=== PATIENT | female | born 1975 | race Caucasian/White ===

== ENCOUNTER 2017-03-31 16:25 | Emergency (ER) | payer MEDICAID, OTHER ==
[~2017-03-31] VITALS: Ht 162.6 cm; Wt 81.6 kg
[2017-03-31] MEDS ORDERED: RT-ALBUTEROL/IPRATROPIUM 3 ML (DUONEB) VIAL INH ONE (17:15)
[2017-03-31] MEDS ORDERED: DEXAMETHASONE 4 MG/ML SDV (DECADRON) IH ONE (17:15)
--- NOTE | 2017-03-31 18:00 | Diagnostic Imaging Report ---
CLINICAL INDICATION: Patient has asthma, cough and congestion and tightness, worse x2 days. EXAM: Chest x-ray, PA and lateral views. COMPARISONS: None. FINDINGS: Lungs/pleura: Lungs are clear. There is no pneumothorax. There is no pleural effusion. Mediastinum: Unremarkable. Pulmonary vasculature: Unremarkable. Heart: Unremarkable. Bones/extrathoracic soft tissue: Unremarkable. IMPRESSION: There is no radiographic evidence of acute cardiopulmonary process. Dictated by: Dictated on workstation # [id number]
[2017-03-31] MEDS ORDERED: predniSONE 20 MG TAB PO ONE (18:15)
[2017-03-31] MEDS ORDERED: DOXY100C42 PO (18:16)
[2017-03-31] MEDS ORDERED: IPRA3AMP IH (18:16)
[2017-03-31] MEDS ORDERED: METH4TAB PO (18:16)
[2017-03-31] MEDS ORDERED: RT-ALBUINH IH (18:16)
[2017-03-31] MEDS ORDERED: BUDE1AMP IH (18:16)
--- NOTE | 2017-03-31 18:17 | ED Respiratory ---
General Chief Complaint: Respiratory Problems Stated Complaint: ASTHMA/ALLERGIES/SOB Nursing Triage Note: PT STATES HX OF ASTHMA AND ALLERGIES, FEELS SOB, HURTS TO COUGH AND CAUSES CHEST PAIN, "FEELS LIKE SHE IS UNDER WATER." O2 SAT 96% AT TRIAGE ON ROOM AIR. Source: patient History of Present Illness Time seen by provider: 17:10 Initial Comments PT ARRIVES VIA POV FROM HOME C/O ASTHMA FLARE UP FOR THE LAST COUPLE OF DAYS PT TAKES ALBUTEROL NEBULIZER AND INHALER EVERY DAY, AND HAS BEEN OUT FOR 2 DAYS AND WILL NOT BE ABLE TO REFILL THEM FOR 2 MORE DAYS PT HAS ADVAIR BUT HAS NOT BEEN USING IT--NOT FOR SEVERAL MONTHS PT HAS HAD A NON-PRODUCTIVE COUGH BEGAN RUNNING FEVER OF 99 TODAY CHEST FEELS VERY TIGHT HAS HAD ASTHMA HER WHOLE LIFE NO SICK CONTACTS PCP: IN [place], [place] Allergies and Home Medications Allergies Coded Allergies: hydrocodone (Verified Allergy, Severe, 03/31/17) Home Medications Albuterol Sulfate 1 Puff Puff, 2 PUFF IH Q4H, #1 USE WITH SPACER AT ALL TIMES Prescribed by: PATRICIA JIMENEZ on 03/31/171815 Budesonide 1 Mg/2 Ml Ampul.neb, 1 MG IH BID, #1 Prescribed by: PATRICIA JIMENEZ on 03/31/171815 Doxycycline Monohydrate 100 Mg Capsule, 100 MG PO BID, #20 Prescribed by: PATRICIA JIMENEZ on 03/31/171815 Ipratropium/Albuterol Sulfate 3 Ml Ampul.neb, 3 ML IH Q4H PRN for SHORTNESS OF BREATH, #1 Prescribed by: PATRICIA JIMENEZ on 03/31/171815 Methylprednisolone 4 Mg Tab.ds.pk, 4 MG PO UD, #1 Prescribed by: PATRICIA JIMENEZ on 03/31/171815 Constitutional: see HPI, fever EENTM: nose congestion, see HPI Respiratory: see HPI, cough, short of breath, wheezing Cardiovascular: see HPI, chest pain Gastrointestinal: no symptoms reported Genitourinary: no symptoms reported : No LMP: March 31, 2017 (NO CONTROL) Musculoskeletal: no symptoms reported Skin: no symptoms reported Psychiatric/Neurological: No Symptoms Reported Hematologic/Lymphatic: No Symptoms Reported Immunological/Allergic: see HPI (SEASONAL ALLERGIES) Past Vbxdcyk-Mowrvj-Zmqwqo Hx Patient Social History Alcohol Use: Denies Use Recreational Drug Use: No Smoking Status: Former Smoker (/ PPD, QUIT 2 MONTHS AGO, PER PT ON 03/31/17) Type Used: Cigarettes 2nd Hand Smoke Exposure: No Recent Foreign Travel: No Contact w/Someone Who Travel: No Recent Infectious Disease Expo: No Recent Hopitalizations: No Seasonal Allergies Seasonal Allergies: Yes Surgeries HX Surgeries: No Respiratory Hx Respiratory Disorders: Yes Respiratory Disorders: Asthma Cardiovascular Hx Cardiac Disorders: Yes Cardiac Disorders: High Cholesterol Neurological Hx Neurological Disorders: No Reproductive System : No Female Reproductive Disorders: Denies Genitourinary Hx Genitourinary Disorders: No Gastrointestinal Hx Gastrointestinal Disorders: No Musculoskeletal Hx Musculoskeletal Disorders: No Endocrine Hx Endocrine Disorders: No HEENT HX ENT Disorders: No Cancer Hx Cancer: Yes Cancer: Cervical Psychosocial Hx Psychiatric Problems: No Integumentary HX Skin/Integumentary Disorder: No Blood Transfusions Hx Blood Disorders: No Physical Exam Vital Signs Vital Sign - Last 12Hours 03/31/17 03/31/17 16:46 17:17 Temp 99.2 Pulse 74 Resp 20 B/P (MAP) 130/97 Pulse Ox 98 O2 Delivery Room Air O2 Flow Rate 2.00 Capillary Refill : Less Than 3 Seconds General Appearance: WD/WN, no apparent distress HEENT: PERRL/EOMI, other (NASAL MUCOSAL EDEMA AND CLEAR POST NASAL DRAINAGE. NO SINUS TENDERNESS) Neck: normal inspection Respiratory: no respiratory distress, no accessory muscle use, decreased breath sounds (DIFFUSELY), wheezing (INSPIRATORY AND EXPIRATORY WHEEZING IN ALL LUNG OLMOS) Cardiovascular: regular rate, rhythm, no murmur Gastrointestinal: normal bowel sounds, non tender, soft Extremities: normal inspection, normal capillary refill Neurologic/Psychiatric: nnp II-XII nml as tested, no motor/sensory deficits, alert, normal mood/affect, oriented x 3 Skin: normal color, warm/dry Progress/Results/Core Measures Results/Orders My Orders Orders - PATRICIA JIMENEZ DO Albuterol/Ipra Inhalation Soln (Duoneb I (03/31/17 17:15) Dexamethasone Injection (Decadron Inject (03/31/17 17:15) Rt Request For Service (03/31/17 17:11) Svn Sm Volume Nebulizer Rt-Rfs (03/31/17 17:11) Chest Pa/Lat (2 View) (03/31/17 17:35) Prednisone Tablet (Deltasone Tablet) (03/31/17 18:15) Medications Given in ED Current Medications Medications Dose Ordered Sig/Ted Route Start Time Stop Time Status Last Admin Dose Admin Albuterol/ Ipratropium 3 ml ONCE ONCE INH 03/31/17 17:15 03/31/17 17:16 DC 03/31/17 17:21 3 ML Dexamethasone Sodium Phosphate 20 mg ONCE ONCE IH 03/31/17 17:15 03/31/17 17:16 DC 03/31/17 17:23 20 MG Prednisone 40 mg ONCE ONCE PO 03/31/17 18:15 03/31/17 18:16 DC 03/31/17 18:21 40 MG Vital Signs/I&O Vital Sign - Last 12Hours 03/31/17 03/31/17 03/31/17 16:46 17:17 17:27 Temp 99.2 Pulse 74 Resp 20 B/P (MAP) 130/97 Pulse Ox 98 100 O2 Delivery Room Air O2 Flow Rate 2.00 2.00 Blood Pressure Mean: 108 Progress Note : Progress Note GIVEN NEB TREATMENT WITH DUO NEB + DECADRON--INCREASED AERATION, DECREASED WHEEZING BUT STILL HAS MILD RESIDUAL WHEEZING IN AL LUNG OLMOS. PT STATES SHE FEELS MUCH BETTER. PT DECLINES ANOTHER NEB TREATMENT, AND FEELS COMFORTABLE GOING HOME. O2 SATS REMAIN IN UPPER 90'S Diagnostic Imaging Comments CXR--NO ACUTE PROCESS, PER RADIOLOGIST REPORT @ 1800 Reviewed: Reviewed by Me Departure Impression Impression: Primary Impression: Asthma exacerbation Additional Impression: Acute bronchitis Disposition: 01 HOME, SELF-CARE Condition: Improved Departure-Patient Inst. Referrals: NO,LOCAL PHYSICIAN (PCP/Family) Primary Care Physician Patient Instructions: Acute Bronchitis, Adult (DC), Asthma, Adult (DC) Add. Discharge Instructions: USE YOUR ADVAIR EVERY DAY USE YOUR INHALERS PRESCRIBED TYLENOL AND MOTRIN NEEDED FOR PAIN OR FEVER LOTS OF CLEAR LIQUIDS FOLLOW UP WITH YOUR DR TOMORROW IF NO BETTER RETURN TO ER IF WORSE All discharge instructions reviewed with patient and/or family. Voiced understanding. Scripts Ipratropium/Albuterol Sulfate (Iprat-Albut 0.5-3(2.5) mg/3 ml) 3 Ml Ampul.neb 3 ML IH Q4H Y for SHORTNESS OF BREATH, #1 EACH Prov: PATRICIA JIMENEZ DO 03/31/17 Budesonide (Pulmicort) 1 Mg/2 Ml Ampul.neb 1 MG IH BID, #1 UNIT Prov: PATRICIA JIMENEZ DO 03/31/17 Methylprednisolone (Medrol) 4 Mg Tab.ds.pk 4 MG PO UD, #1 PKG Prov: PATRICIA JIMENEZ DO 03/31/17 Doxycycline Monohydrate (Doxycycline Monohydrate) 100 Mg Capsule 100 MG PO BID, #20 CAP Prov: PATRICIA JIMENEZ DO 03/31/17 Albuterol Sulfate (PROAIR HFA) 1 Puff Puff 2 PUFF IH Q4H for BREATHING, #1 GM USE WITH SPACER AT ALL TIMES Prov: PATRICIA JIMENEZ DO 03/31/17 PATRICIA JIMENEZ DO March 31, 2017 18:17
[2017-03-31 18:23] VITALS: BP 139/92
== END 2017-03-31 18:23 | disposition home or self-care (01) ==
LOC: ER 16:28
DX: J45.901 Unspecified asthma with (acute) exacerbation (principal); J20.9 Acute bronchitis, unspecified; Z87.891 Personal history of nicotine dependence; Z79.899 Other long term (current) drug therapy
CPT/HCPCS: 71020; 94640; 99282

== ENCOUNTER 2017-07-01 19:39 | Emergency (ER) | payer MEDICAID ==
[~2017-07-01] VITALS: Ht 162.6 cm; Wt 81.6 kg
[~2017-07-01 19:39] MED LIST: BUDE1AMP IH; DOXY100C42 PO; IPRA3AMP IH; METH4TAB PO; RT-ALBUINH IH
[2017-07-01] MEDS ORDERED: DEXAMETHASONE 4 MG/ML SDV (DECADRON) IH ONE (20:00)
[2017-07-01] MEDS ORDERED: methylPREDNISolone 125 MG (Solu-MEDROL) VIAL IVP ONE (20:00)
[2017-07-01] MEDS ORDERED: RT-ALBUTEROL/IPRATROPIUM 3 ML (DUONEB) VIAL INH ONE (20:00)
[2017-07-01 20:03] LABS: BASOPHILS % (AUTO) 0 % (0-10); EOSINOPHILS % (AUTO) 0 % (0-10); LYMPHOCYTES % (AUTO) 14 % (12-44); MEAN CORPUSCULAR HEMOGLOBIN 28 PG (25-34); MEAN CORPUSCULAR HGB CONC 33 G/DL (32-36); MEAN CORPUSCULAR VOLUME 85 FL (80-99); MEAN PLATELET VOLUME 11.1 FL (7.4-10.4); MONOCYTES # (AUTO) 0.6 X 10^3 (0.0-1.0); MONOCYTES % (AUTO) 4 % (0-12); NEUTROPHILS % (AUTO) 82 % (42-75); PLATELET COUNT 401 10^3/uL (130-400); RED BLOOD COUNT 5.32 10^6/uL (4.35-5.85); RED CELL DISTRIBUTION WIDTH 13.6 % (10.0-14.5); WHITE BLOOD COUNT 14.6 10^3/uL (4.3-11.0)
[2017-07-01 20:14] LABS: PROTHROMBIN TIME PATIENT 12.8 SEC (12.2-14.7)
[2017-07-01] MEDS ORDERED: diphenhydrAMINE 50 MG/ML INJ (BENADRYL) ONE (20:23)
[2017-07-01] MEDS ORDERED: FAMOTIDINE 20MG/2ML IV (PEPCID) ONE (20:23)
[2017-07-01] MEDS ORDERED: RT-ALBUTEROL SULF 2.5 MG/3 ML PRE-MIX VIAL ONE ×2 (20:24→20:37)
[2017-07-01 20:25] LABS: ALANINE AMINOTRANSFERASE 23 U/L (0-55); ALBUMIN 4.4 GM/DL (3.2-4.5); ANION GAP 10 MMOL/L (5-14); ASPARTATE AMINO TRANSFERASE 18 U/L (5-34); BILIRUBIN,TOTAL 0.4 MG/DL (0.1-1.0); BLOOD UREA NITROGEN 14 MG/DL (7-18); BUN/CREATININE RATIO 18; CALCIUM 9.8 MG/DL (8.5-10.1); CARBON DIOXIDE 25 MMOL/L (21-32); CHLORIDE 106 MMOL/L (98-107); CREATINE KINASE 281 U/L (29-168); GFR ESTIMATED > 60; GLUCOSE 112 MG/DL (70-105); POTASSIUM 4.2 MMOL/L (3.6-5.0); SODIUM 141 MMOL/L (135-145); TOTAL PROTEIN 7.6 GM/DL (6.4-8.2)
[2017-07-01 20:27] LABS: BAND NEUTROPHILS 5 %; BASOPHILS % (MANUAL) 0 %; EOSINOPHILS % (MANUAL) 0 %; LYMPHOCYTES % (MANUAL) 18 %; NEUTROPHILS % (MANUAL) 76 %
[2017-07-01 20:31] LABS: TROPONIN I < 0.30 NG/ML (<0.30)
[2017-07-01] MEDS ORDERED: RT-SODIUM CHL INHALATION 3 ML VIAL ONE (20:37)
--- NOTE | 2017-07-01 20:56 | Diagnostic Imaging Report ---
INDICATION: Shortness of air. Cough and congestion. COMPARISON: 03/31/2017. EXAMINATION: Single frontal view of the chest was obtained. FINDINGS: Normal heart size and pulmonary vascularity. The lungs are well aerated and clear. No large pleural effusion or pneumothorax is seen. The visualized osseous structures show no acute abnormalities. IMPRESSION: No acute cardiopulmonary process. Dictated by: Dictated on workstation # [id number]
[2017-07-01] MEDS ORDERED: NS 100 ML (IVPB) BAG IV ONE (21:45)
[2017-07-01] MEDS ORDERED: IOHEXOL 350 MG/ML 150 ML (OMNIPAQUE 350) VIAL IV ONE (21:45)
--- NOTE | 2017-07-01 23:46 | ED Respiratory ---
General Chief Complaint: Respiratory Problems Stated Complaint: SOA Nursing Triage Note: pt ambulated to room. pt states she has been "feeling drained, and sob" since june 18. pt complains of many allergies. pt states she has been sucking her nebulizer dry since the and taking breathing treatments continuously. pt took a breathing treatment on her way here. Source: patient History of Present Illness Time seen by provider: 19:47 Initial Comments PT ARRIVES VIA POV FROM HOME IN [place], [place]--DROVE SELF HERE STATES "I'M NOT BREATHING" "I'M NOT HAVING ANY OXYGEN TO PULL FROM" "I FEEL LIKE I'M DROWNING" PT STATES SYMPTOMS HAVE BEEN ONGOING SINCE 06/18/17--STATES SYMPTOMS ARE MUCH WORSE WHEN SHE IS IN HER HOUSE STATES THAT ANDRE HAS BEEN PULLED UP, AND THINKS SHE IS BEING EXPOSED TO MOLD SHE ALSO HAS A DOG IN THE HOUSE--LATER STATES "THE WORST ALLERGIC REACTION IS TO DOGS--IT ZAPS ME AND DEPLETES ME OF MY ABILITY TO BREATHE" "IT'S EXASPERATING MY ASTHMA--WHATEVER IT IS THAT'S CAUSING THIS ALLERGIC REACTION" NO FEVER C/O VERY HARSH COUGH WITH WHITE TO CASTRO SPUTUM STATES SHE COUGHS SO HARD IT MAKES HER CHEST AND NECK HURT HAS HAD SOME MILD ANKLE SWELLING SINCE THESE SYMPTOMS BEGAN HAS HAD THE SAME MULTIPLE TIMES HAS NOT SOUGHT CARE UNTIL TONIGHT SINCE SYMPTOMS BEGAN 06/18/17 PT STATES SYMPTOMS ARE NOT ANY DIFFERENT TONIGHT THAN WHAT SHE HAS BEEN EXPERIENCING HAS USED 2 PRO-AIR INHALERS THIS MONTH AND IS NOW OUT AND STATES SHE CANNOT REFILL THEM FOR ANOTHER MONTH. PT HAS USED ALBUTEROL NEBULIZER 7-8 TIMES TODAY AND USED IT ENROUTE--STATES SHE PLUGGED THE NEBULIZER IN HER CAR AND USED IT ON THE WAY HERE--STATES "I WAS JUST TRYING TO STAY ALIVE" HAS NOT USED / TAKEN ANYTHING ELSE FOR SYMPTOMS AT ANY TIME. PT CONTINUES TO SMOKE 1 PPD PT USES HER ALBUTEROL INHALER AND NEBULIZER EVERY DAY NORMALLY HAS BEEN SEEN BY CASTING FINISHER A COUPLE OF TIMES, YEARS AGO, BUT DID NOT FOLLOW UP SEEN HER 03/2017 FOR SAME--AT THAT TIME, PT HAD ADVAIR AT HOME, BUT WAS NOT USING IT. SHE WAS ALSO GIVEN RX FOR PULMICORT NEBULIZER SOLN, BUT DID NOT GET IT FILLED NEVER FOLLOWED UP WITH HER PCP AFTER THAT VISIT. PCP: [facility] [place], [place] Allergies and Home Medications Allergies Coded Allergies: hydrocodone (Verified Allergy, Severe, 03/31/17) Home Medications Albuterol Sulfate 1 Puff Puff, 2 PUFF IH Q4H, #1 USE WITH SPACER AT ALL TIMES Prescribed by: PATRICIA JIMENEZ on 03/31/171815 Albuterol/Ipratropium 4 Gm Aero, 2 PUFF IH Q4H, #1 Prescribed by: PATRICIA JIMENEZ on 07/01/172347 Budesonide 1 Mg/2 Ml Ampul.neb, 1 MG IH BID, #1 Prescribed by: PATRICIA JIMENEZ on 03/31/171815 Budesonide 1 Mg/2 Ml Ampul.neb, 1 MG IH BID, #60 Prescribed by: PATRICIA JIMENEZ on 07/01/172347 Bupropion HCl 150 Mg Tab.er.24h, 150 MG PO DAILY, #15 Prescribed by: PATRICIA JIMENEZ on 07/01/172347 Doxycycline Monohydrate 100 Mg Capsule, 100 MG PO BID, #20 Prescribed by: PATRICIA JIMENEZ on 03/31/171815 Fluticasone/Salmeterol 1 Each Blst.w.dev, 1 EACH IH BID, #1 Prescribed by: PATRICIA JIMENEZ on 07/01/172347 Ipratropium/Albuterol Sulfate 3 Ml Ampul.neb, 3 ML IH Q4H PRN for SHORTNESS OF BREATH, #1 Prescribed by: PATRICIA JIMENEZ on 03/31/171815 Ipratropium/Albuterol Sulfate 3 Ml Ampul.neb, 3 ML IH Q4H PRN for SHORTNESS OF BREATH, #1 Prescribed by: PATRICIA JIMENEZ on 07/01/172347 Methylprednisolone 4 Mg Tab.ds.pk, 4 MG PO UD, #1 Prescribed by: PATRICIA JIMENEZ on 03/31/171815 Methylprednisolone 4 Mg Tab.ds.pk, 4 MG PO UD, #1 Prescribed by: PATRICIA JIMENEZ on 07/01/172347 Montelukast Sodium 10 Mg Tablet, 10 MG PO DAILY, #30 Prescribed by: PATRICIA JIMENEZ on 07/01/172347 Constitutional: no symptoms reported, No chills, No diaphoresis, No dizziness EENTM: no symptoms reported Respiratory: see HPI, cough, dyspnea on exertion, orthopnea, phlegm, short of breath, wheezing Cardiovascular: see HPI, chest pain, edema, No palpitations, No syncope, No vascular heart diseas Gastrointestinal: no symptoms reported Genitourinary: no symptoms reported Musculoskeletal: see HPI, neck pain Skin: no symptoms reported Psychiatric/Neurological: See HPI, Anxiety Hematologic/Lymphatic: No Symptoms Reported Immunological/Allergic: see HPI (ENVIRONMENTAL ALLERGIES) Past Czqboki-Uccpjx-Dbiryk Hx Patient Social History Alcohol Use: Denies Use Recreational Drug Use: No Smoking Status: Current Everyday Smoker (1 PPD) Type Used: Cigarettes 2nd Hand Smoke Exposure: No Recent Foreign Travel: No Contact w/Someone Who Travel: No Recent Infectious Disease Expo: No Recent Hopitalizations: No Seasonal Allergies Seasonal Allergies: Yes Surgeries HX Surgeries: No Respiratory Hx Respiratory Disorders: Yes Respiratory Disorders: Asthma Cardiovascular Hx Cardiac Disorders: Yes (VASOVAGAL SYNCOPE) Cardiac Disorders: High Cholesterol, Syncope Neurological Hx Neurological Disorders: No Reproductive System : No Hx Reproductive Disorders: Yes (CERVICAL DYSPLASIA--NO TREATMENT) Female Reproductive Disorders: Ovarian Cyst, Polycystic Ovarian Dis Genitourinary Hx Genitourinary Disorders: No Gastrointestinal Hx Gastrointestinal Disorders: No Musculoskeletal Hx Musculoskeletal Disorders: No Endocrine Hx Endocrine Disorders: No HEENT HX ENT Disorders: No Cancer Hx Cancer: No (CERVICAL DYSPLASIA--NO TREATMENT--STATES "I WENT AWAY ON IT'S OWN" ) Psychosocial Hx Psychiatric Problems: No Integumentary HX Skin/Integumentary Disorder: No Blood Transfusions Hx Blood Disorders: No Physical Exam Vital Signs Vital Sign - Last 12Hours 07/01/17 07/01/17 07/01/17 19:40 20:30 20:35 Temp 97.5 Pulse 99 Resp 25 B/P (MAP) 149/87 Pulse Ox 95 O2 Delivery Room Air O2 Flow Rate 2.00 FiO2 96 Capillary Refill : Less Than 3 Seconds General Appearance: other (ANXIOUS, HYPERVENTILATING, TALKS NON-STOP AT LENGTH , SOMEWHAT DRAMATIC. HARSH, FORCED EXPIRATORY WHEEZING. + ODOR OF CIGARETTES) HEENT: PERRL/EOMI, normal ENT inspection, TMs normal, pharynx normal Neck: non-tender, full range of motion, supple, normal inspection Respiratory: wheezing (HARSH, FORCED EXPIRATORY WHEEZING DIFFUSELY BILATERALLY) , other (HYPERVENTILATING) Cardiovascular: normal peripheral pulses, regular rate, rhythm, no edema, no JVD, no murmur Gastrointestinal: normal bowel sounds, non tender, soft Extremities: normal inspection, no pedal edema, no calf tenderness, normal capillary refill Neurologic/Psychiatric: vp data II-XII nml as tested, no motor/sensory deficits, alert, oriented x 3 Skin: normal color, warm/dry Progress/Results/Core Measures Results/Orders Lab Results Laboratory Tests Test 07/01/17 19:51 Range/Units White Blood Count 14.6 H 4.3-11.0 10^3/uL Red Blood Count 5.32 4.35-5.85 10^6/uL Hemoglobin 14.9 11.5-16.0 G/DL Hematocrit 45 35-52 % Mean Corpuscular Volume 85 80-99 FL Mean Corpuscular Hemoglobin 28 25-34 PG Mean Corpuscular Hemoglobin Concent 33 32-36 G/DL Red Cell Distribution Width 13.6 10.0-14.5 % Platelet Count 401 H 130-400 10^3/uL Mean Platelet Volume 11.1 H 7.4-10.4 FL Neutrophils (%) (Auto) 82 H 42-75 % Lymphocytes (%) (Auto) 14 12-44 % Monocytes (%) (Auto) 4 0-12 % Eosinophils (%) (Auto) 0 0-10 % Basophils (%) (Auto) 0 0-10 % Neutrophils # (Auto) 12.0 H 1.8-7.8 X 10^3 Lymphocytes # (Auto) 2.0 1.0-4.0 X 10^3 Monocytes # (Auto) 0.6 0.0-1.0 X 10^3 Eosinophils # (Auto) 0.0 0.0-0.3 10^3/uL Basophils # (Auto) 0.0 0.0-0.1 10^3/uL Neutrophils % (Manual) 76 % Lymphocytes % (Manual) 18 % Monocytes % (Manual) 1 % Eosinophils % (Manual) 0 % Basophils % (Manual) 0 % Band Neutrophils 5 % Blood Morphology Comment NORMAL Prothrombin Time 12.8 12.2-14.7 SEC INR Comment 1.0 0.8-1.4 Activated Partial Thromboplast Time 24 24-35 SEC Sodium Level 141 135-145 MMOL/L Potassium Level 4.2 3.6-5.0 MMOL/L Chloride Level 106 98-107 MMOL/L Carbon Dioxide Level 25 21-32 MMOL/L Anion Gap 10 5-14 MMOL/L Blood Urea Nitrogen 14 7-18 MG/DL Creatinine 0.80 0.60-1.30 MG/DL Estimat Glomerular Filtration Rate > 60 BUN/Creatinine Ratio 18 Glucose Level 112 H 70-105 MG/DL Calcium Level 9.8 8.5-10.1 MG/DL Magnesium Level 2.0 1.8-2.4 MG/DL Total Bilirubin 0.4 0.1-1.0 MG/DL Aspartate Amino Transf (AST/SGOT) 18 5-34 U/L Alanine Aminotransferase (ALT/SGPT) 23 0-55 U/L Alkaline Phosphatase 89 40-136 U/L Total Creatine Kinase 281 H 29-168 U/L Creatine Kinase MB 4.5 <6.6 NG/ML Troponin I < 0.30 <0.30 NG/ML B-Type Natriuretic Peptide 19.8 <100.0 PG/ML Total Protein 7.6 6.4-8.2 GM/DL Albumin 4.4 3.2-4.5 GM/DL Serum Test, Qualitative NEGATIVE NEGATIVE My Orders Orders - TONYPATRICIA K DO Saline Lock/Iv-Start (07/01/17 19:57) Ekg Tracing (07/01/17 19:57) Monitor-Rhythm Ecg Trace Only (07/01/17 19:57) BNP (07/01/17 19:57) Cbc With Automated Diff (07/01/17 19:57) Comprehensive Metabolic Panel (07/01/17 19:57) Creatine Kinase (07/01/17 19:57) Creatine Kinase Mb (07/01/17 19:57) Hcg,Qualitative Serum (07/01/17 19:57) Magnesium (07/01/17 19:57) Protime With Inr (07/01/17 19:57) Partial Thromboplastin Time (07/01/17 19:57) Troponin I (07/01/17 19:57) Albuterol/Ipra Inhalation Soln (Duoneb I (07/01/17 20:00) Dexamethasone Injection (Decadron Inject (07/01/17 20:00) Rt Request For Service (07/01/17 19:57) Svn Sm Volume Nebulizer Rt-Rfs (07/01/17 19:57) Methylprednisolone Sod Succ (Solu-Medrol (07/01/17 20:00) Manual Differential (07/01/17 19:51) Diphenhydramine Injection (Benadryl Inje (07/01/17 20:23) Famotidine Injection (Pepcid Injection) (07/01/17 20:23) Albuterol Pre-Mix Nebs (Rt) (Proventil P (07/01/17 20:24) Chest 1 View, Ap/Pa Only (07/01/17 20:38) Sodium Chl Inhalation (Rt-Sodium Chl Inh (07/01/17 20:37) Albuterol Pre-Mix Nebs (Rt) (Proventil P (07/01/17 20:37) Ct Angio Chest W (07/01/17 21:02) Iohexol Injection (Omnipaque 350 Mg/Ml 1 (07/01/17 21:45) Ns (Ivpb) (Sodium Chloride 0.9% Ivpb Bag (07/01/17 21:45) Albuterol/Ipratropium Inhaler (Combivent (07/02/17 07:00) Albuterol/Ipra Inhalation Soln (Duoneb I (07/02/17 02:00) Svn Sm Volume Nebulizer Rt-Rfs (07/01/17 23:38) Medications Given in ED Current Medications Medications Dose Ordered Sig/Ted Route Start Time Stop Time Status Last Admin Dose Admin Albuterol Sulfate 2.5 mg STK-MED ONCE .ROUTE 07/01/17 20:24 07/01/17 20:31 DC 07/01/17 21:04 2.5 MG Albuterol Sulfate 2.5 mg STK-MED ONCE .ROUTE 07/01/17 20:37 07/01/17 20:44 DC 07/01/17 21:05 2.5 MG Dexamethasone Sodium Phosphate 20 mg ONCE ONCE IH 07/01/17 20:00 07/01/17 20:01 DC 07/01/17 20:06 20 MG Diphenhydramine HCl 50 mg STK-MED ONCE .ROUTE 07/01/17 20:23 07/01/17 20:30 DC 07/01/17 20:36 50 MG Famotidine 20 mg STK-MED ONCE .ROUTE 07/01/17 20:23 07/01/17 20:30 DC 07/01/17 20:36 40 MG Iohexol 125 ml ONCE ONCE IV 07/01/17 21:45 07/01/17 21:46 DC 07/01/17 21:46 125 ML Methylprednisolone Sodium Succinate 125 mg ONCE ONCE IVP 07/01/17 20:00 07/01/17 20:01 DC 07/01/17 20:10 125 MG Sodium Chloride 3 ml STK-MED ONCE .ROUTE 07/01/17 20:37 07/01/17 20:44 DC 07/01/17 21:05 3 ML Sodium Chloride 80 ml ONCE ONCE IV 07/01/17 21:45 07/01/17 21:46 DC 07/01/17 21:46 80 ML Vital Signs/I&O Vital Sign - Last 12Hours 07/01/17 07/01/17 07/01/17 07/01/17 19:40 20:08 20:30 20:35 Temp 97.5 Pulse 99 Resp 25 B/P (MAP) 149/87 Pulse Ox 95 96 93 96 O2 Delivery Room Air Room Air Nasal Cannula Nasal Cannula O2 Flow Rate 2.00 2.00 FiO2 96 07/01/17 07/02/17 20:47 00:37 Temp 97.5 Pulse 99 Resp 25 Pulse Ox 95 95 O2 Delivery Nasal Cannula Room Air O2 Flow Rate 2.00 Blood Pressure Mean: 107 Progress Note : Progress Note PT GIVEN DUONEB TREATMENT + DECADRON NEBULIZED, FOLLOWED BY HOUR LONG ALBUTEROL TREATMENT PT GIVEN SOLU-MEDROL IV 2027--INITIAL NEB TREATMENT GIVEN AND SOON IT IS FINISHED, BUT BECAME HYSTERICAL, HYPERVENTILATING AND STATING "I'M HAVING AN ALLERGIC REACTION" AND THAT HER FACE IS NUMB--HARSH, FORCED EXPIRATORY WHEEZING, PT WITH WARM, MOIST SKIN AND FACE FLUSHED. PT TALKING RAPIDLY NON-STOP. GIVEN BENADRYL AND PEPCID, O2 PLACED AT 2L/NC (O2 SATS 93-95% ON ROOM AIR PRIOR TO PLACING ON O2) AND HOUR LONG NEB TREATMENT STARTED PT STATES "I CAN SMELL PERFUME AND I'M HIGHLY ALLERGIC TO PERFUME" 2037-PT EVENTUALLY CALMED AND BREATHING IS NOW EVEN AND UNLABORED WITH MUCH DECREASE IN FORCED EXPIRATORY WHEEZING, STATES SHE FEELS MUCH BETTER. PT CONTINUED TO IMPROVE, AND AT DISMISSAL NO LONGER WITH WHEEZING, AND PT FEELS COMFORTABLE GOING HOME. O2 SATS IN UPPER 90'S ON ROOM AIR AT TIME OF DISMISSAL. ECG Initial ECG Impression Time: 19:51 Initial ECG Rate: 92 Initial ECG Rhythm: Normal Sinus Initial ECG Impression: Normal Initial ECG Comparisson: No Previous ECG Available Diagnostic Imaging Comments CXR--NO ACUTE PROCESS, PER RADIOLOGIST REPORT CT CHEST ANGIOGRAM--NO ACUTE PROCESS, NO OBVIOUS P.E.--POOR OPACIFICATION--PER [facility] VIA FAX @ [phone] Reviewed: Reviewed by Me Departure Impression Impression: Primary Impression: Asthma exacerbation Additional Impression: Anxiety Disposition: 01 HOME, SELF-CARE Condition: Improved Departure-Patient Inst. Referrals: NO,LOCAL PHYSICIAN (PCP/Family) Primary Care Physician Patient Instructions: Asthma, Adult (DC) Add. Discharge Instructions: FOLLOW UP WITH YOUR DR IN 1-2 DAYS FOR FURTHER CARE RETURN TO ER IF WORSE All discharge instructions reviewed with patient and/or family. Voiced understanding. Scripts Budesonide (Budesonide) 1 Mg/2 Ml Ampul.neb 1 MG IH BID, #60 VIAL Prov: PATRICIA JIMENEZ [place] DO 07/01/17 Montelukast Sodium (Singulair) 10 Mg Tablet 10 MG PO DAILY, #30 TAB Prov: TONYPATRICIA [place] DO 07/01/17 Fluticasone/Salmeterol (Advair 250-50 Diskus) 1 Each Blst.w.dev 1 EACH IH BID, #1 UNIT Prov: TONYPATRICIA [place] DO 07/01/17 Albuterol/Ipratropium (Combivent Respimat Inhal [place]) 4 Gm Aero 2 PUFF IH Q4H for BREATHING, #1 INH Prov: TONYPATRICIA [place] DO 07/01/17 Ipratropium/Albuterol Sulfate (Iprat-Albut 0.5-3(2.5) mg/3 ml) 3 Ml Ampul.neb 3 ML IH Q4H Y for SHORTNESS OF BREATH, #1 EACH Prov: TONYPATRICIA K DO 07/01/17 Bupropion HCl (Wellbutrin Xl) 150 Mg Tab.er.24h 150 MG PO DAILY for Smoking Cessation, #15 TAB Prov: PATRICIA JIMENEZ DO 07/01/17 Methylprednisolone (Medrol) 4 Mg Tab.ds.pk 4 MG PO UD, #1 PKG Prov: PATRICIA JIMENEZ DO 07/01/17 PATRICIA JIMENEZ DO Jul 01, 2017 23:46
[2017-07-01] MEDS ORDERED: BUDE1AMP2 IH (23:48)
[2017-07-01] MEDS ORDERED: FLUT1DIS26 IH (23:48)
[2017-07-01] MEDS ORDERED: METH4TAB PO (23:48)
[2017-07-01] MEDS ORDERED: IPRA4AER IH (23:48)
[2017-07-01] MEDS ORDERED: IPRA3AMP IH (23:48)
[2017-07-01] MEDS ORDERED: BUPR-42 PO (23:48)
[2017-07-01] MEDS ORDERED: MONT10TA21 PO (23:48)
--- NOTE | 2017-07-02 00:02 | Diagnostic Imaging Report ---
PROCEDURE: CT angiography of the chest with contrast. TECHNIQUE: Multiple contiguous axial images were obtained through the chest after uneventful bolus administration of intravenous contrast. Reconstructed CTA MIP acquisitions were also performed. INDICATION: Shortness of air COMPARISON: None FINDINGS: Exam is suboptimal. No large central saddle emboli are identified within the pulmonary arteries. Evaluation beyond this, however, is suboptimal secondary to poor opacification of pulmonary arteries. Heart size is within normal limits. There is no large pericardial effusion. No pathologically enlarged or morphologically abnormal adenopathy is seen within the mediastinum, mamie, nor axilla. Lung windows show no focal consolidation, pleural effusion, nor pneumothorax. There is some mild image degradation secondary to motion artifact, but no pulmonary parenchymal masses are seen. Punctate subpleural micronodule is noted within the posterior left lower lobe and measures approximately 2-3 mm (image 57, series 6). Osseous structures show no acute abnormalities. No lytic or blastic bony lesions are seen. Included portions of the upper abdomen show a 1.3 cm left adrenal nodular lesion (image 145, series 6). IMPRESSION: 1. No large central saddle emboli are seen. Evaluation beyond this is suboptimal secondary to poor opacification by contrast bolus. 2. No other acute cardiopulmonary process identified. 3. Small subpleural micronodule within the posterior margins of the left lower lobe. If patient is in a high-risk category such as history of smoking, one-year followup is recommended. Alternatively, if patient is in a low-risk category, no additional followup may be indicated. 4. Left adrenal nodule. This is incompletely characterized on this exam. Correlation with dedicated adrenal protocol CT abdomen is recommended and could be performed on a nonemergent basis. Dictated by: Dictated on workstation # [id number]
[2017-07-02 00:37] VITALS: BP 149/87
[2017-07-02] MEDS ORDERED: RT-ALBUTEROL/IPRATROPIUM 3 ML (DUONEB) VIAL INH SCH (02:00)
[2017-07-02] MEDS ORDERED: ALBUTEROL/IPRATROP (COMBIVENT RESPIMAT) 4 GM INHALER INH SCH (07:00)
== END 2017-07-02 00:37 | disposition home or self-care (01) ==
LOC: EDUNIT# 19:39 → ER 19:41
DX: J45.901 Unspecified asthma with (acute) exacerbation (principal); F41.9 Anxiety disorder, unspecified; E78.00 Pure hypercholesterolemia, unspecified; F17.210 Nicotine dependence, cigarettes, uncomplicated; Z87.448 Personal history of other diseases of urinary system
CPT/HCPCS: 36415; 71010; 71275; 80053; 82550; 82553; 83735; 83880; 84484; 84703; 85007; 85027; 85610; 85730; 93041; 94640; 96374; 96375

== ENCOUNTER 2019-06-18 08:08 | Emergency (ER) | payer MEDICAID ==
[~2019-06-18] VITALS: Ht 160 cm; Wt 86.2 kg
[~2019-06-18 08:08] MED LIST changes: +BUDE1AMP2 IH; +BUPR-42 PO; +FLUT1DIS26 IH; -IPRA3AMP IH; +IPRA3AMP31 IH; +IPRA4AER IH; +MONT10TA21 PO
--- NOTE | 2019-06-18 08:15 | NUR ---
Dr Siddiqi cleansing head with sterile NS and Chlorhexidine with 4x4's. Area is noted in center of very small approx 3 cm hematoma a superfical lac/abrasion as source of pt's bleeding that is under control.
[2019-06-18] MEDS ORDERED: NAPR-915 (08:44)
[2019-06-18] MEDS ORDERED: IBUPROFEN 800 MG (MOTRIN) TAB PO STA (08:46)
--- NOTE | 2019-06-18 08:53 | ED Head Injury ---
General Chief Complaint: Laceration Stated Complaint: HEAD INJ Nursing Triage Note: Patient arrival per [facility] with report of cleaning in garage when a shelf fell and hit her in head. Pt reports visualizing alot of blood from posterior R side of head and feeling dazed. No LOC. Small hematoma noted with a very small abrasion/lac < 1cm with controlled bleeding. Source: patient, EMS History of Present Illness Date Seen by Provider: Jun 18, 2019 Time Seen by Provider: 08:08 Initial Comments 43-year-old female presenting with complaints of head injury while cleaning out her garage. She states that a shelf fell and hit her on the right side of her head. She denies losing consciousness.She had some dizziness and lightheadedness and felt like she might pass out especially after seeing her own blood. She denies any nausea or vomiting. She is feeling much better now after being evaluated by EMS and they reassured her that the cut was very small. Bleeding is controlled on arrival to the emergency department. She states that her last tetanus shot was probably more than 20 years ago. She has no difficulty with her vision currently. She does still feel pain to the right side of her head and some muscle soreness in her neck. She denies any numbness or tingling in her arms or legs. She has some pain radiating to her right ear and jaw from where she was hit. There is no bleeding or drainage from her ears or nose. Occurred: just prior to arrival Severity: mild Location: parietal (right) Method of Injury: direct blow Loss of Consciousness: no loss of consciousness Associated Systoms: No Chest Pain, No Cough, No Diaphoresis, No Fever/Chills; Headaches; No Loss of Appetite, No Malaise, No Nausea/Vomiting, No Rash, No Seizure, No Shortness of Air, No Syncope, No Weakness Allergies and Home Medications Allergies Coded Allergies: hydrocodone (Verified Allergy, Severe, 03/31/17) amoxicillin (Unverified Adverse Reaction, Mild, hives, 06/18/19) Home Medications Albuterol Sulfate 1 Puff Puff, 2 PUFF IH Q4H USE WITH SPACER AT ALL TIMES Prescribed by: PATRICIA JIMENEZ on 03/31/17 1816 Albuterol/Ipratropium 4 Gm Aero, 2 PUFF IH Q4H Prescribed by: PATRICIA JIMENEZ on 8/16/17 2348 Montelukast Sodium 10 Mg Tablet, 10 MG PO DAILY Prescribed by: PATRICIA JIMENEZ on 07/01/172347 Patient Home Medication List Home Medication List Reviewed: Yes Review of Systems Review of Systems Constitutional: No chills; dizziness; No fever, No malaise, No weakness Eyes: No Symptoms Reported Ears, Nose, Mouth, Throat: ear pain (right side); denies ear discharge, denies nose discharge, denies epistaxis Respiratory: no symptoms reported Cardiovascular: no symptoms reported Gastrointestinal: no symptoms reported Genitourinary: no symptoms reported Musculoskeletal: see HPI Skin: see HPI Psychiatric/Neurological: Headache (since being hit) Hematologic/Lymphatic: No Symptoms Reported Past Zltigkl-Tcqzil-Nwzolp Hx Past Med/Social Hx: Reviewed Nursing Past Med/Soc Hx Patient Social History Alcohol Use: Denies Use Recreational Drug Use: No Smoking Status: Current Everyday Smoker Type Used: Cigarettes Former Smoker, Quit: Jan 14, 2017 2nd Hand Smoke Exposure: No Recent Foreign Travel: No Contact w/Someone Who Travel: No Recent Infectious Disease Expo: No Recent Hopitalizations: No Physical Abuse: No Sexual Abuse: No Mistreated: No Fear: No Seasonal Allergies Seasonal Allergies: Yes Past Medical History Surgeries: No Respiratory: Yes Asthma Cardiac: Yes (VASOVAGAL SYNCOPE) High Cholesterol, Syncope Neurological: No : No Reproductive Disorders: Yes (CERVICAL DYSPLASIA--NO TREATMENT) Female Reproductive Disorders: Ovarian Cyst, Polycystic Ovarian Dis Genitourinary: No Gastrointestinal: No Musculoskeletal: No Endocrine: No HEENT: No Cancer: No (CERVICAL DYSPLASIA--NO TREATMENT--STATES "I WENT AWAY ON IT'S OWN" ) Cervical Psychosocial: No Integumentary: No Blood Disorders: No Physical Exam Vital Signs Vital Signs - First Documented 06/18/19 08:10 Temp 98.1 Pulse 84 Resp 16 B/P (MAP) 131/75 (93) O2 Delivery Room Air Capillary Refill : Less Than 3 Seconds Height, Weight, BMI Height: 5'3.00" Weight: 190lbs. oz. 86.851657li; BMI Method:Stated General Appearance: WD/WN, no apparent distress HEENT: PERRL/EOMI, normal ENT inspection, TMs normal, pharynx normal Neck: full range of motion, supple, tender lateral (bilateral muscle soreness. no vertebral tenderness) Cardiovascular: normal peripheral pulses, regular rate, rhythm Respiratory: chest non-tender, lungs clear, normal breath sounds Gastrointestinal: normal bowel sounds, non tender, soft Extremities: normal range of motion, non-tender, normal inspection Psychiatric: alert, oriented x 3 Crainal Nerves: normal hearing, normal speech, PERRL Coordination/Gait: normal gait Motor/Sensory: no motor deficit, no sensory deficit Skin: warm/dry, other (5 mm laceration to right parietal scalp) Karen Coma Score Best Eye Response: (4) Open Spontaneously Best Verbal Response: (5) Oriented Best Motor Response: (6) Obeys Commands Karen Total: 15 Images 1 - 5 mm laceration to right parietal scalp with surrounding hematoma. No crepitus or skull deformity/stepoff Procedures/Interventions Wound Location: Scalp (right parietal) Wound Length (cm): 0.5 Wound's Depth, Shape: sub Q Wound Explored: clean Staple Repair: Stapler 35W Progress Wound cleaned with Chlorhexidine and Sterile Water. Bleeding controlled. Closed wound with single staple without anesthetic. Patient tolerated procedure well without immediate complication. Counseled on follow up and return precautions. Progress/Results/Core Measures Results/Orders My Orders Orders - TAMIKA TEJEDA MD Ibuprofen Tablet (Motrin Tablet) (06/18/19 08:46) Ice: Apply To Affected Area (06/18/19 08:46) Dipht,Pertuss(Acell),Tet Adult (Boostrix (06/18/19 09:00) Medications Given in ED Current Medications Medications Dose Ordered Sig/Ted Route Start Time Stop Time Status Last Admin Dose Admin Diphtheria/ Tetanus/Acell Pertussis 0.5 ml ONCE ONCE IM 06/18/19 09:00 06/18/19 09:01 DC 06/18/19 08:58 0.5 ML Vital Signs/I&O 06/18/19 06/18/19 08:10 08:57 Temp 98.1 98.1 Pulse 84 Resp 16 B/P (MAP) 131/75 (93) O2 Delivery Room Air Blood Pressure Mean: 93 Progress Progress Note : Progress Note Reassured pt and reviewed signs and symptoms of concussion. will place a single staple then discharge to home. Counseled on follow up and return precautions Departure Impression Primary Impression: Laceration without foreign body of scalp, initial encounter Additional Impressions: Closed head injury without loss of consciousness Qualified Codes: S09.90XA - Unspecified injury of head, initial encounter Acute cervical myofascial strain Qualified Codes: S16.1XXA - Strain of muscle, fascia and tendon at neck level, initial encounter Disposition: 01 HOME, SELF-CARE Condition: Stable Departure-Patient Inst. Referrals: NO,LOCAL PHYSICIAN (PCP/Family) Primary Care Physician Patient Instructions: Laceration Repair With [place] (DC), Minor Head Injury (DC), Cervical Muscle Strain (DC), Diphtheria and Tetanus Toxoids, and Acellular Pertussis Vaccine Add. Discharge Instructions: Try to keep your head elevated when sleeping for the next 2 to 3 days to help limit swelling and pain. May apply antibiotic ointment 2-3 times a day as needed over the staple to help prevent infection as it is healing. Have the staple removed in 7 to 10 days. May apply ice 20-30 minutes every few hours as needed for pain and swelling May use Ibuprofen or Acetaminophen for pain All discharge instructions reviewed with patient and/or family. Voiced understanding. TAMIKA TEJEDA MD Jun 18, 2019 08:53
[2019-06-18] MEDS ORDERED: TETANUS,DIPTH,PERTUSS P/F (BOOSTRIX) 0.5 ML VIAL IM ONE (09:00)
[2019-06-18 09:15] VITALS: BP 124/68
--- OUTSIDE RECORDS SUMMARY | 2019-06-18 13:42 | XMS REPORT | Encounter Summary ---
Author Author [facility] Organization [facility] Address Unknown Phone Unavailable Care Team Providers Care Ob Tech Name Role Phone Ger Blakely MD PCP Encounter Details Care Team Description Date Type Department 01/12/2013 Hist-Telephone [facility] Social History Date Tobacco Use Types Packs/Day Years Used Never Assessed Sex Assigned at Date Recorded Not on file Industry Job Start Date Occupation Not on file Not on file Not on file Travel End Travel History Travel Start No recent travel history available. documented as of this encounter Progress Notes * Latricia Reyes MD - 01/12/2013 12:00 PM KNITTER MECHANIC Recorded as Task Date: 01/12/2013 12:09 PM, Created By: Katerina Howard Task Name: Call Back Assigned To: Katerina Howard Regarding Patient: SANTI ARAMBULA, Status: Active Comment: Katerina Howard - 12 Jan 2013 12:09 PM TASK CREATED Caller: Self; Medical Complaint; Pt called re: tetanus/pneumonia/influenza vaccinations she recieved on Thursday. She complains that she has been lethargic, nauseated, having body aches and has occassional dizziness since the injections. She also c/o mild swelling around t he injections. She states that she also believes she may be suffering from sinu s pressure/congestion and states that she has had intermittent periods of diffic ulty breathing, tightness in her chest and chest pain. Pt was informed that any chest pain, tightness/weight on chest or difficulty roxann athing should be treated in the ER immediately. She denies any of those symptom s today and stated she understands instructions given. She states that she is drinking, eating and voiding normally. Encouraged monito ring these things and to use Ibuprofren and ice pack for injection site tenderne ss a/o swelling. Pt denies need for an apnt and will follow-up with an apnt if symptoms are not improving. GER HUNG - 12 Jan 2013 1:05 PM TASK EDITED Great, thank you. GER BLAKELY - 12 Jan 2013 1:05 PM TASK REPLIED TO: Previously Assigned To GER BLAKELY Electronically signed by:Katerina Howard Jan 12 2013 1:50PM KNITTER MECHANIC TER MECHANIC documented in this encounter Plan of Treatment Not on filedocumented as of this encounter Visit Diagnoses Not on filedocumented in this encounter
--- OUTSIDE RECORDS SUMMARY | 2019-06-18 13:42 | XMS REPORT | Encounter Summary ---
Author Author [facility] Organization [facility] Address Unknown Phone Unavailable Care Team Providers Care Senior Private Client Advisor Name Role Phone PCP Unavailable Encounter Details Care Team Description Date Type Department Gustabo Navarro MD [address] [place], [place] [id number] Emergency, Physician, Unspecified asthma, with exacerbation 03/31/2013 [place] [address] Social History Date Tobacco Use Types Packs/Day Years Used Never Assessed Sex Assigned at Date Recorded Not on file Industry Job Start Date Occupation Not on file Not on file Not on file Travel End Travel History Travel Start No recent travel history available. documented as of this encounter Medications at Time of Discharge Start Date End Date Medication Sig Dispensed Refills 10/11/2012 albuterol (PROVENTIL) 2.5 75 0 mg /3 mL (0.083 %) nebulizer solution 06/20/2015 ADVAIR DISKUS 250-50 Inhale. 0 mcg/dose DISKUS 06/20/2015 albuterol (PROVENTIL INHALE 1-2 1 0 HFA;VENTOLIN HFA) 90 PUFFS EVERY mcg/actuation inhaler 4-6 HOURS NEEDED AND DIRECTED. 12/30/2012 06/20/2015 CHANTIX CONTINUING MONTH TAKE 1 TABLET 60 0 MUKESH 1 mg tablet TWICE DAILY. 12/30/2012 06/20/2015 LEGACY MED TAKE 1 0 DIRECTED PER PACKAGE INSTRUCTIONS. 12/30/2012 06/20/2015 MAXALT 10 mg tablet TAKE 1 TABLET 9 0 AT ONSET OF HEADACHE. MAY REPEAT EVERY 2 HOURS NEEDED. MAXIMUM 3 TABLETS IN 24 HOURS. 06/20/2015 metFORMIN (GLUCOPHAGE) 1 PO BID 60 0 500 MG tablet documented as of this encounter Plan of Treatment Not on filedocumented as of this encounter Visit Diagnoses Diagnosis Unspecified asthma, with exacerbation documented in this encounter
--- OUTSIDE RECORDS SUMMARY | 2019-06-18 13:42 | XMS REPORT | Clinical Summary ---
Author Author [facility] Organization [facility] Address Unknown Phone Unavailable Care Team Providers Care Hospital Insurance Clerk Name Role Phone Calli Plummer MD PCP Allergies Not on File Medications End Date Status Medication Sig Dispensed Refills Start Date Active albuterol (PROVENTIL) 2.5 75 0 10/11/201 mg /3 mL (0.083 %) 2 nebulizer solution Active Problems Problem Noted Date Asthma 12/30/2012 Overview: ICD-10 conversion Abnormal Pap smear of cervix 12/30/2012 Overview: Description: Dr. Rice Nipple discharge 12/30/2012 Migraine with aura 12/30/2012 Overview: ICD-10 conversion Polycystic ovarian syndrome 12/30/2012 Malaise and fatigue 12/30/2012 Overview: IMO Update Hypercholesterolemia 12/30/2012 Immunizations Name Administration Dates Next Due Influenza TIV (IM) 01/10/2013 Pneumococcal 01/10/2013 Polysaccharide 23-Valent Td Tdap 01/10/2013 Family History Medical History Relation Name Comments Breast cancer Other Family History; Breast Cancer; Heart disease Other Family History; Heart Disease; Hypertension Other Family History; Hypertension; Relation Name Status Comments Other Social History Date Tobacco Use Types Packs/Day Years Used Never Assessed Sex Assigned at Date Recorded Not on file Industry Job Start Date Occupation Not on file Not on file Not on file Travel End Travel History Travel Start No recent travel history available. Last Filed Vital Signs Reading Time Taken Comments Vital Sign 124/76 01/10/2013 4:24 PM TRENCHING MACHINE OPERATOR Blood Pressure 76 01/10/2013 4:24 PM TRENCHING MACHINE OPERATOR Pulse 36.9 C (98.4 F) 01/10/2013 4:24 PM TRENCHING MACHINE OPERATOR Temperature 16 01/10/2013 4:24 PM TRENCHING MACHINE OPERATOR Respiratory Rate - - Oxygen Saturation - - Inhaled Oxygen Concentration 87.2 kg (192 lb 3.2 oz) 01/10/2013 4:24 PM TRENCHING MACHINE OPERATOR Weight 163.8 cm (5' 4.5") 12/30/2012 1:07 PM TRENCHING MACHINE OPERATOR Height 32.48 12/30/2012 1:07 PM TRENCHING MACHINE OPERATOR Body Mass Index Plan of Treatment Not on file Results Not on filefrom Last 3 Months
--- OUTSIDE RECORDS SUMMARY | 2019-06-18 13:43 | XMS REPORT | Clinical Summary ---
Author Author [facility] Organization [facility] Address Unknown Phone Unavailable Care Team Providers Care Painter Helper Spray Name Role Phone Anastasia Holm DO Unavailable Unavailable Malgorzata Howard MD Unavailable Kamaljit Rascon MD Unavailable Maria Esther Gomez PA-C Unavailable Unavailable Shasta Marin APRN Unavailable Glenis Garza MD Unavailable Jack Franklin DO Unavailable Gonzalo Reynaga MD PCP Source Comments Some departments are not documenting in the electronic medical record. If you d o not see the information that you expected, contact Release of Information in [facility] Information Management department at [phone] for further assistan ce in locating additional records.[facility] Allergies No Known Allergies Medications End Date Status Medication Sig Dispensed Refills Start Date Active rizatriptan (MAXALT) 5 mg Take 1 Tab by 30 Tab 3 PO tabletIndications: mouth As 1 Migraine Needed. May repeat in 2 hours in needed Active naproxen (NAPROSYN) 500 Take 1 Tab by 60 Tab 1 mg tabletIndications: mouth twice 2 Disorders of bursae and daily with tendons in shoulder meals. region, unspecified, Rotator cuff (capsule) sprain Active metFORMIN (GLUCOPHAGE) TAKE ONE 180 Tab 0 500 mg tablet TABLET BY 3 MOUTH TWICE DAILY WITH MEALS Active amoxicillin/K clavulanate Take 1 Tab by 0 (AUGMENTIN) 875/125 mg mouth every tablet 12 hours. Active pravastatin (PRAVACHOL) Take 20 mg by 0 20 mg tablet mouth daily. Active albuterol (VENTOLIN HFA, Inhale 2 3 Inhaler 3 PROAIR HFA) 90 Puffs by 5 mcg/actuation inhaler mouth every 6 hours as needed for Wheezing. Active albuterol 0.083% 3 mL every 6 90 Vial 0 (PROVENTIL; VENTOLIN) 2.5 hours as 5 mg /3 mL (0.083 %) needed for nebulizer solution Wheezing. Active Problems Problem Noted Date Spotting complicating 06/10/2011 Last Assessment & Plan: Check labs listed. Cont with PNV. Will order US now to eval the cyst and the bleeding. Ovarian cyst 06/10/2011 Last Assessment & Plan: Ultrasound ordered. PCOS (polycystic ovarian syndrome) 05/15/2011 Depression 05/15/2011 Tobacco abuse 05/15/2011 Asthma 07/20/2009 Family History Medical History Relation Name Comments Cancer Maternal breast Grandmother Relation Name Status Comments Maternal Grandmother Social History Date Tobacco Use Types Packs/Day Years Used Current Every Day Smoker Cigarettes 0.5 Smokeless Tobacco: Never Used Tobacco Cessation: Ready to Quit: Yes; Counseling Given: Yes Comments: Since age 17 Drinks/Week oz/Week Comments Alcohol Use No Sex Assigned at Date Recorded Not on file Industry Job Start Date Occupation Not on file Not on file Not on file Travel End Travel History Travel Start No recent travel history available. Last Filed Vital Signs Reading Time Taken Comments Vital Sign 130/90 05/29/2014 1:25 PM CDT Blood Pressure 78 05/29/2014 1:25 PM CDT Pulse 36.9 C (98.4 F) 05/29/2014 1:25 PM CDT Temperature 16 01/18/2014 1:19 PM MOLDER OPERATOR Respiratory Rate 98% 01/18/2014 1:19 PM MOLDER OPERATOR Oxygen Saturation - - Inhaled Oxygen Concentration 90.7 kg (200 lb) 05/29/2014 1:25 PM CDT Weight 162.6 cm (5' 4") 05/29/2014 1:25 PM CDT Height 34.33 05/29/2014 1:25 PM CDT Body Mass Index Plan of Treatment Health Maintenance Due Date Last Done Comments DTAP/TDAP VACCINES ( - 1991 Tdap) PHYSICAL (COMPREHENSIVE) 06/30/2014 06/30/2013, 03/11/2011 EXAM BREAST CANCER SCREENING 11/11/2014 11/11/2013, 10/20/2011, 10/20/2011 CERVICAL CANCER SCREENING 06/30/2016 06/30/2013, 03/11/2011 INFLUENZA VACCINE 08/16/2019 10/28/2013 (Declined) HIV SCREENING Completed 12/10/2010 Results Not on filefrom Last 3 Months Advance Directives Patient Neurobiologist Explanation Type Date Recorded Advance 10/21/2013 2:08 PM Directive/DPOA
--- OUTSIDE RECORDS SUMMARY | 2019-06-18 13:43 | XMS REPORT | Encounter Summary ---
Author Author [facility] Organization [facility] Address Unknown Phone Unavailable Care Team Providers Care Licensed Nurse Practitioner Name Role Phone Ger Blakely MD PCP Encounter Details Care Team Description Date [place] [id number] [facility] [address] [place] [address] 01/10/2013 Hist-Appointmen [facility] Social History Date Tobacco Use Types Packs/Day Years Used Never Assessed Sex Assigned at Date Recorded Not on file Industry Job Start Date Occupation Not on file Not on file Not on file Travel End Travel History Travel Start No recent travel history available. documented as of this encounter Last Filed Vital Signs Reading Time Taken Comments Vital Sign 124/76 01/10/2013 4:24 PM CEO & BOARD DIRECTOR Blood Pressure 76 01/10/2013 4:24 PM CEO & BOARD DIRECTOR Pulse 36.9 C (98.4 F) 01/10/2013 4:24 PM CEO & BOARD DIRECTOR Temperature 16 01/10/2013 4:24 PM CEO & BOARD DIRECTOR Respiratory Rate - - Oxygen Saturation - - Inhaled Oxygen Concentration 87.2 kg (192 lb 3.2 oz) 01/10/2013 4:24 PM CEO & BOARD DIRECTOR Weight - - Height 32.48 12/30/2012 1:07 PM CEO & BOARD DIRECTOR Body Mass Index documented in this encounter Progress Notes * Ger Blakely MD - 01/10/2013 4:15 PM CEO & BOARD DIRECTOR Chief Complaint Chief Complaint: The patient presents to the office today with multiple issues to follow up on. History of Present Illness Free Text HPI: 1. Pt. cont. to have fatigue, states she arouses alot in sleep, s leep walks at times. Lab studies last week including cbc, tsh, cmp, mono screen failed to reveal cause of fatigue. Pt. is agreeable to doing sleep study. Pt. me ntions that she has an autistic child at home that causes her to be on alert dur ing her sleep. She denies severe anxiety or depressive sxs. 2. Pt. has had some nipple d/c last week, now resolved. Prolactin level was norm al, but pt. has yet to do mammogram, previously ordered. Pt. has not heard from referrals to schedule. 3. Chol is high based on recent lab including ldl, triglycerides. I want pt. on low chol diet, encouraged her to exercise 45 min., 4-5 days per week to lose wt. Recheck lipid panel, order in chart, in February,. 4. Asthma minimally better after one week of advair use 250 dose. Pt. is still n eeding proair daily. I d/w pt. adding singulair if sxs not better after one mos. of use. Pt. agreeable. Pt. is going to start chantix, has Rx., to stop smoking. 5. Pt. has an irregular spot that presented on right cheek months ago. However, it started to itch in last week. Current Meds 1. Advair Diskus 250-50 MCG/DOSE Inhalation Aerosol Powder Breath Activated; The rapy: (Recorded:75Inb3551) to 2. Albuterol Sulfate (2.5 MG/3ML) 0.083% Inhalation Nebulization Solution; Thera py: 11Oct2012 to 3. ProAir HFA 108 (90 Base) MCG/ACT Inhalation Aerosol Solution; INHALE 1-2 PUFF S EVERY 4-6 HOURS NEEDED AND DIRECTED; Therapy: (Recorded:49Wqb1195) to 4. Maxalt 10 MG Oral Tablet; TAKE 1 TABLET AT ONSET OF HEADACHE. MAY REPEAT EVER Y 2 HOURS NEEDED. MAXIMUM 3 TABLETS IN 24 HOURS; Therapy: 03Rfz7123 to 5. MetFORMIN HCl 500 MG Oral Tablet; 1 PO BID; Therapy: (Recorded:42Bhj1139) to 6. Chantix Continuing Month Brenton 1 MG Oral Tablet; TAKE 1 TABLET TWICE DAILY; The rapy: 92Wbv9391 to (Evaluate:49Gtu2772); Last Rx:20Mgv1681 7. Chantix Starting Month Brenton 0.5 MG X 11 & 1 MG X 42 Oral Tablet; TAKE DIRECTED PER PACKAGE INSTRUCTIONS; Therapy: 22Oij5435 to (Last Rx:30Dec2012) Allergies No Known Drug Allergies Vitals Signs [Data Includes: Last 1 Day] 10Jan2013 04:24PM BMI Calculated: 32.41 BSA Calculated: 1.94 Weight: 192 lb 3.2 oz Systolic: 124 Diastolic: 76 Temperature: 98.4 F Heart Rate: 76 Respiration: 16 LMP: 76Yum8630 Immunizations Td/DT --- Series1: Unknown. Review of Systems Complete-Female ROS - [facility]: Constitutional, eye, otolaryngeal, neck, cardiovascu lar, pulmonary, gastrointestinal, genitourinary, musculoskeletal, skin, neurolog ical, psychiatric, endocrine and hematologic review of systems are normal except as per HPI and unless noted below. Other Symptoms: Abnormal pap being followed by Dr. Rice, health care administrator. Active Problems 1. Abnormal Pap Smear Of Cervix 795.09 Dr. Rice 2. Asthma 493.90 3. Classic Migraine (With Aura) 346.00 4. Fatigue 780.79 5. Hypercholesterolemia 272.0 6. Nipple Discharge 611.79 7. Polycystic Ovarian Syndrome 256.4 Past Medical History 1. History of V22.2 Surgical History 1. History of Oral Surgery Tooth Extraction Family History 1. Family history of Breast Cancer V16.3 2. Family history of Heart Disease V17.49 3. 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 Obese, NAD. Examination of the head and face: Normal cephalic, atraumatic. Palpation of the face and sinuses: Normal. Inspection of conjunctiva and lids: Normal. Examination of pupils and irises: Pupils equally round and reactive to light and accomodation; extraocular movements intact. External inspection of ears and nose: Ear canal normal. Otoscopic examination: TM clear. Examination of nasal mucosa, septum, turbinates: Turbinates normal, no rhinorrhe a or septal deviation. Inspection of lips, teeth, gums: Normal. Examination of oropharynx: No erythema, exudate, or drainage of oropharynx. Examination of neck:. Supple, non-tender, no thyromegaly or adenopathy. Examination of thyroid:. Normal. Assessment of respiratory effort:. Normal. Auscultation of lungs: Abnormal. Inspiratory wheeze intermittent. Auscultation of heart:. Regular rate and rhythm, no murmur. Carotid arteries: No carotid bruits. Pedal pulses: WNL. Examination for edema/varicosities: Normal. Inspection of breasts: Normal. Palpation of breasts and axillae: Normal. No nipple d/c ilicited. Examination of abdomen: Soft, non-tender, non-distended. Positive bowel sounds. Examination of liver and spleen:. Normal. Examination for hernias:. No hernias present. Palpation of lymph nodes in neck:. Normal. Inspection/palpation joints, bones, muscles:. Normal. Inspection of skin and subcutaneous tissue: Abnormal. Irregular red skin lesion at lower right jawline/cheek area, macular, about 1-2 cm diam. Examination of cranial nerves:. Cranial nerves intact. Examination of reflexes:. Normal. Orientation to time, place, person: Normal. Mood and affect:. Normal mood and affect. Counseling Time/Counseling Documentation [facility]: Total time of encounter was 45 minutes. Assessment 1. Fatigue 780.79 2. Hypercholesterolemia 272.0 3. Asthma 493.90 4. Nipple Discharge 611.79 5. Irregular skin lesion right cheek/jawline. Plan 1. Schedule sleep study to eval fatigue. If negative, consider tx. for anxiet y/stress given h/o alertness with autistic child at home. 2. Low chol diet HO given to pt. Increase exercise as per HPI and recheck lipi d panel in February,. 3. Recheck asthma in office next mos., consider PFTs if still an issue and cons ider adding singulair. 4. Mammogram again ordered today to eval nipple d/c further bilat., though sxs have resolved. 5. Schedule punch biopsy to eval irregular skin growth in one mos. 6. Adacel, pneumovax, and flu shots given today. Signatures Electronically signed by : GER BLAKELY M.D.; Jan 10 2013 4:52PM (Author) & BOARD DIRECTOR * Ger Blakely MD - 01/10/2013 4:15 PM CEO & BOARD DIRECTOR Clinical Summary Patient Name : SANTI ARAMBULA Appointment Date: 01/10/2013 4:15:00 PM : [id number] : [address] [place] [address] : Vitals Recorded Date/Time: 01/10/2013 4:24:00 PM Systolic: 124 mm Hg; Diastolic: 76 mm Hg; Temperature: 98.4 F; Heart Rate: 76 bpm; Respiration: 16; BMI Calculated: 32.41; BSA Calculated: 1.94; Weight: 192.2-0 lb; LMP: [id number] Current Medications Advair Diskus 100-50 MCG/DOSE Inhalation Aerosol Powder Breath Activated; ; Da ys: 0; Qty: ; Refill: 0 Albuterol Sulfate (2.5 MG/3ML) 0.083% Inhalation Nebulization Solution; ; Days : 30; Qty: 75; Refill: 0 Chantix Continuing Month Brenton 1 MG Oral Tablet; TAKE 1 TABLET TWICE DAILY.; Day s: 30; Qty: 60; Refill: 5 Chantix Starting Month Brenton 0.5 MG X 11 & 1 MG X 42 Oral Tablet; TAKE DIRECTED PER PACKAGE INSTRUCTIONS.; Days: 0; Qty: 1; Refill: 0 Maxalt 10 MG Oral Tablet; TAKE 1 TABLET AT ONSET OF HEADACHE. MAY REPEAT EVERY 2 HOURS NEEDED. MAXIMUM 3 TABLETS IN 24 HOURS.; Days: 0; Qty: 9; Refill: 0 MetFORMIN HCl 500 MG Oral Tablet; 1 PO BID; Days: 0; Qty: 60; Refill: 5 ProAir HFA 108 (90 Base) MCG/ACT Inhalation Aerosol Solution; INHALE 1-2 PUFFS EVERY 4-6 HOURS NEEDED AND DIRECTED.; Days: 0; Qty: 1; Refill: 12 Allergies No Known Drug Allergies Document and Provider Details Document: Clinical Summary Provider: ZORA Site: [facility] Site Address : [address] [place] [address], [address] [place] [address] Site & BOARD DIRECTOR * Ger Blakely MD - 01/10/2013 4:15 PM CEO & BOARD DIRECTOR Has the patient self-referred since the previous visit? no If yes, whom has the patient self referred to? Electronically signed by:Vonda Madrid Jan 12 2013 12:05PM CEO & BOARD DIRECTOR & BOARD DIRECTOR documented in this encounter Plan of Treatment Not on filedocumented as of this encounter Visit Diagnoses Not on filedocumented in this encounter
--- OUTSIDE RECORDS SUMMARY | 2019-06-18 13:43 | XMS REPORT | Encounter Summary ---
Author Author [facility] Organization [facility] Address Unknown Phone Unavailable Care Team Providers Care Wardrobe Specialty Worker Name Role Phone Ger Blakely MD PCP Encounter Details Care Team Description Date [place] [address] [facility] [address] [place] [address] 12/30/2012 Hist-Appointmen [facility] Social History Date Tobacco Use Types Packs/Day Years Used Never Assessed Sex Assigned at Date Recorded Not on file Industry Job Start Date Occupation Not on file Not on file Not on file Travel End Travel History Travel Start No recent travel history available. documented as of this encounter Last Filed Vital Signs Reading Time Taken Comments Vital Sign 122/70 12/30/2012 1:07 PM AN EMPLOYEE SPONSOR OR ADVOCATE AND Blood Pressure 72 12/30/2012 1:07 PM AN EMPLOYEE SPONSOR OR ADVOCATE AND Pulse 37.1 C (98.8 F) 12/30/2012 1:07 PM AN EMPLOYEE SPONSOR OR ADVOCATE AND Temperature 16 12/30/2012 1:07 PM AN EMPLOYEE SPONSOR OR ADVOCATE AND Respiratory Rate - - Oxygen Saturation - - Inhaled Oxygen Concentration 88.9 kg (196 lb) 12/30/2012 1:07 PM AN EMPLOYEE SPONSOR OR ADVOCATE AND Weight 163.8 cm (5' 4.5") 12/30/2012 1:07 PM AN EMPLOYEE SPONSOR OR ADVOCATE AND Height 33.12 12/30/2012 1:07 PM AN EMPLOYEE SPONSOR OR ADVOCATE AND Body Mass Index documented in this encounter Progress Notes * Ger Blakely MD - 12/30/2012 1:00 PM AN EMPLOYEE SPONSOR OR ADVOCATE AND Has the patient self-referred since the previous visit? no If yes, whom has the patient self referred to? Electronically signed by:Vonda Madrid Dec 30 2012 1:13PM AN EMPLOYEE SPONSOR OR ADVOCATE AND EMPLOYEE SPONSOR OR ADVOCATE AND * Ger Blakely MD - 12/30/2012 1:00 PM AN EMPLOYEE SPONSOR OR ADVOCATE AND Clinical Summary Patient Name : SANTI ARAMBULA Appointment Date: 12/30/2012 1:00:00 PM : [id number] : [address] [place] [address] : Assessed Problems Fatigue Hypercholesterolemia Health Maintenance Treatment Plan Medication Changes: Chantix Starting Month Brenton 0.5 MG X 11 & 1 MG X 42 Oral Tablet; TAKE DIRECTED PER PACKAGE INSTRUCTIONS.; Days: 0; Qty: 1; Refill: 0 [Start] Chantix Continuing Month Brenton 1 MG Oral Tablet; TAKE 1 TABLET TWICE DAILY.; Day s: 30; Qty: 60; Refill: 5 [Start] Labs/Procedures: CBC with Diff CMP-Comprehensive Metabolic Panel TSH-Thyroid Stimulating Hormone T4 Free Infectious Hamilton Test Sedimentation Rate-ESR Lipid Profile UA Reflex Culture Vitals Recorded Date/Time: 12/30/2012 1:07:00 PM Systolic: 122 mm Hg; Diastolic: 70 mm Hg; Temperature: 98.8 F; Heart Rate: 72 bpm; Respiration: 16; BMI Calculated: 33.06; BSA Calculated: 1.95; Height: 0-64.5 in; Weight: 196-0 lb; LMP: [id number] Current Medications Advair Diskus 100-50 MCG/DOSE Inhalation [...] 108 (90 Base) MCG/ACT Inhalation Aerosol Solution; ; Days: 17; Qty: 8; Refill: 0 ProAir HFA 108 (90 Base) MCG/ACT Inhalation Aerosol Solution; INHALE 1-2 PUFFS EVERY 4-6 HOURS NEEDED AND DIRECTED.; Days: 0; Qty: 1; Refill: 12 Allergies No Known Drug Allergies Document and Provider Details Document: Clinical Summary Provider: ZORA Site: [facility] Site Address : [address], [address] [place] [address] Site EMPLOYEE SPONSOR OR ADVOCATE AND * Ger Blakely MD - 12/30/2012 1:00 PM AN EMPLOYEE SPONSOR OR ADVOCATE AND Chief Complaint Chief Complaint: The patient presents to the office today with multiple complaints. History of Present Illness Free Text HPI: Pt. is new to clinic. Pt. has multiple complaints. 1. Pt. c/o fatigue for 8 months. Pt. sleeps well, 8 hours, but wakes feeling tir ed. Muscles ache all of the time. No mention of snoring. 2. Pt. c/o nipple d/c for 3 days, prior to onset of menses, which she is current ly on. The d/c is clear at left breast. Last mammogram was a year ago. 3. Pt. wants to quit smoking. Pt. is down to one cigarette per day, but unable t o completely quit. Pt. has soa and asthma. Pt. uses albuterol mult. x per day, a nd it seems to no longer be working. Pt. has advair at home, but she is not usin g it. Current Meds 1. Advair Diskus 100-50 MCG/DOSE Inhalation Aerosol Powder Breath Activated; The rapy: (Recorded:70Gep5366) to 2. Albuterol Sulfate (2.5 MG/3ML) 0.083% Inhalation Nebulization Solution; Thera py: 11Oct2012 to 3. Maxalt 10 MG Oral Tablet; TAKE 1 TABLET AT ONSET OF HEADACHE. MAY REPEAT EVER Y 2 HOURS NEEDED. MAXIMUM 3 TABLETS IN 24 HOURS; Therapy: 21Cfu7414 to 4. MetFORMIN HCl 500 MG Oral Tablet; 1 PO BID; Therapy: (Recorded:30Dec2012) to 5. ProAir HFA 108 (90 Base) MCG/ACT Inhalation Aerosol Solution; INHALE 1-2 PUFF S EVERY 4-6 HOURS NEEDED AND DIRECTED; Therapy: (Recorded:30Dec2012) to Allergies No Known Drug Allergies Vitals Signs [Data Includes: Last 24 Hours] 30Dec2012 01:07PM BMI Calculated: 33.06 BSA Calculated: 1.95 Height: 5 ft 4.5 in Weight: 196 lb Systolic: 122 Diastolic: 70 Temperature: 98.8 F Heart Rate: 72 Respiration: 16 LMP: [id number] Immunizations Td/DT --- Series1: Unknown. Review of Systems Complete-Female ROS - [facility]: Constitutional, eye, otolaryngeal, neck, cardiovascu lar, pulmonary, gastrointestinal, genitourinary, musculoskeletal, skin, neurolog ical, psychiatric, endocrine and hematologic review of systems are normal except as per HPI and unless noted below. Other Symptoms: Pt. c/o migraine HAs intermittent, worse with stress, causing fl oaters, nausea, sharp pain in head, usually helped by maxalt. Pt. just saw load out supervisor ( Dr. Rice) for pap, was abnormal. Pt. did not mention breast nipple d/c to him. Active Problems 1. 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 Overweight, NAD. Examination of neck:. Supple, non-tender, no thyromegaly or adenopathy. Examination of thyroid:. Normal. Assessment of respiratory effort:. Normal. Auscultation of lungs:. Clear to auscultation bilaterally; no wheezing. No wheez e. Auscultation of heart:. Regular rate and rhythm, no murmur. Carotid arteries: No carotid bruits. Examination for edema/varicosities: Normal. Orientation to time, place, person: Normal. Mood and affect:. Normal mood and affect. Counseling Time/Counseling Documentation [facility]: Time spent in coordination of care. Total ti me of encounter was 45 minutes. Assessment 1. Fatigue 780.79 2. Hypercholesterolemia 272.0 3. Asthma 493.90 4. Nipple Discharge 611.79 Plan Fatigue (780.79) 1. CBC with Diff Requested for: 73Cgm0991 Ordered; For: Fatigue (780.79); Ordered By: GER BLAKELY Perform: [facility]/Cern er Due: 56Ydh8978 2. CMP-Comprehensive Metabolic Panel Requested for: 22Vly9453 Ordered; For: Fatigue (780.79); Ordered By: GER BLAKELY Perform: [facility]/Cern er Due: 53Por7822 3. Infectious Hamilton Test Requested for: 72Kkh6858 Ordered; For: Fatigue (780.79); Ordered By: GER BLAKELY Perform: [facility]/Cern er Due: 66Tar2373 4. Sedimentation Rate-ESR Requested for: 55Geo3966 Ordered; For: Fatigue (780.79); Ordered By: GER BLAKELY Perform: [facility]/Cern er Due: 37Uff5530 5. T4 Free Requested for: 56Tzr4604 Ordered; For: Fatigue (780.79); Ordered By: GER BLAKELY Perform: [facility]/Cern er Due: 21Ewr4287 6. TSH-Thyroid Stimulating Hormone Requested for: 98Thv6355 Ordered; For: Fatigue (780.79); Ordered By: GER BLAKELY Perform: [facility]/Cern er Due: 33Mnw4735 Health Maintenance (V70.0) 7. UA Reflex Culture Requested for: 98Cjl1840 Ordered; For: Health Maintenance (V70.0); Ordered By: GER BLAKELY Perform: [facility]/Cerner Due: 53Eox9919 Hypercholesterolemia (272.0) 8. Lipid Profile Requested for: 00Htl8090 Ordered; For: Hypercholesterolemia (272.0); Ordered By: GER BLAKELY m: [facility]/Cerner Due: 09Jan2013 Nipple Discharge (611.79) 9. Mammogram Requested for: 30Dec2012 Ordered; For: Nipple Discharge (611.79); Ordered By: GER BLAKELY Perform: In Office Due: 31Dec2012 Unlinked 10. Chantix Continuing Month Brenton 1 MG Oral Tablet; TAKE 1 TABLET TWICE DAILY; erapy: 30Dec2012 to (Evaluate:04Wzd9979); Last Rx:30Dec2012 Ordered; Rx By: GER BLAKELY; Dispense: 30 Days ; #:60 Tablet; Refill: 5; Pr int Rx; Do Not Fill Before: 30Dec2012 11. Chantix Starting Month Brenton 0.5 MG X 11 & 1 MG X 42 Oral Tablet; TAKE DIRECTED PER PACKAGE INSTRUCTIONS; Therapy: 30Dec2012 to (Last Rx:30Dec2012) Ordered; Rx By: GER BLAKELY; Dispense: 0 Days ; #:1 X 53 EA Disp Pack; Refi ll: 0; Print Rx; Do Not Fill Before: 30Dec2012 1. Lab ordered to eval fatigue. Pt. to have lab done and schedule f/u PE 1 we ek later, can review lab at ov with pt. May need to consider sleep study also. 2. Mammogram ordered to eval nipple d/c. 3. Chantix orderd for tob cessation. 4. Rec: restart Advair bid, and f/u at ov. Goal to decrease albuterol use to 1 -2 x per week. If not improving, may need to add additional asthma medication, like singulair. Important for pt. to quit smoking. 5. Full PE ordered in 1-2 weeks, will update immunizations then. Signatures Electronically signed by : GER BLAKELY M.D.; Dec 30 2012 1:43PM (Author) EMPLOYEE SPONSOR OR ADVOCATE AND documented in this encounter Plan of Treatment Not on filedocumented as of this encounter Visit Diagnoses Not on filedocumented in this encounter
--- OUTSIDE RECORDS SUMMARY | 2019-06-18 13:43 | XMS REPORT | Encounter Summary ---
Author Author [facility] Organization [facility] Address Unknown Phone Unavailable Care Team Providers [facility] Demonstration Agent Name Role Phone Ger Blakely MD PCP Encounter Details Care Team Description Date [place] [address] [place] [address] 01/04/2013 All[facility] Note [facility] - [facility] [address] [facility] [address] [place] [address] Social History Date Tobacco Use Types Packs/Day Years Used Never Assessed Sex Assigned at Date Recorded Not on file Industry Job Start Date Occupation Not on file Not on file Not on file Travel End Travel History Travel Start No recent travel history available. documented as of this encounter Miscellaneous Notes * Miscellaneous - Ger Blakely MD - 01/04/2013 11:38 AM LOADING CHECKER Verified Results Collected/Examined: Jan 03, 2013 9:58AM Test Result Flag Acceptable Lipid Profile Hours Post Prandial 10 H Cholesterol Lipid Prof 217 mg/dL H 100-200 Triglycerides 241 mg/dL H 0-150 Hdl 37 mg/dL L 40-110 Ldl Cholesterol 132 mg/dL H 0-99 Total Cholesterol/Hdl Ratio 5.9 H 0.0-4.5 Non- HDL Cholesterol 180 mg/dL H 0-130 CMP-Comprehensive Metabolic Panel Albumin 4.1 g/dL 3.5-5.0 Aspartate Aminotransferase 23 IU/L 15-46 Alanine Aminotransferase 35 IU/L 13-69 Bilirubin Total 0.4 mg/dL 0.2-1.3 Protein Total Serum 7.2 g/dL 6.0-8.2 Calcium 9.4 mg/dL 8.4-10.2 Creatinine 0.7 mg/dL 0.4-1.1 Glucose 77 mg/dL 70-100 Alkaline Phosphatase 66 IU/L 42-140 Sodium 140 MEQ/L 133-147 Potassium 4.7 MEQ/L 3.5-5.1 Chloride 102 MEQ/L 96-112 Anion Gap 11 5-17 Blood Urea Nitrogen 9 mg/dL 7-26 Carbon Dioxide 27 MEQ/L 20-30 Gfrf Aa 112 Chronic Kidney Disease less than 60 mL/min/1.73 sq.m^^ Kidney failure less than 15 mL/min/1.73 sq.m^^ Gfrf Non Aa 93 Chronic Kidney Disease less than 60 mL/min/1.73 sq.m^^ Kidney failure less than 15 mL/min/1.73 sq.m^^ T4 Free 1.1 ng/dL 0.8-2.2 Infectious [place] Test Negative Negative CBC with Diff WHITE BLOOD CELL COUNT 7.42 TH/uL 4.00-11.00 Red Blood Cell Count 5.04 MIL/uL H 4.00-5.00 Hemoglobin 14.2 g/dL 12.0-15.0 Hematocrit 43 % 36-45 Mean Corpuscular Volume 86 fL 80-99 Mean Corpuscular Hgb 28 pg 27-34 Mean Corpuscular Hgb Conc 33 % 32-36 Red Cell Distribution Width 13.6 % 9.0-14.5 Platelet Count 377 TH/uL 140-400 Mean Platelet Volume 11.8 fL 9.4-12.3 % Segmented Neutrophils, Auto 57 % 45-78 % Lymphocytes, Auto 33 % 15-47 % Monocytes, Auto 7 % 0-12 % Eosinophils, Auto 2 % 0-7 % Basophils, Auto 1 % 0-2 # Grans 4.21 TH/uL 1.70-6.80 # Lymphs 2.48 TH/uL 1.00-3.30 # Monos 0.51 TH/uL 0.20-0.90 # Eos 0.18 TH/uL 0.00-0.40 # Basos 0.04 TH/uL 0.00-0.10 Thyroid Stimulating Hormone 1.48 uIU/mL 0.47-4.68 UA Dip Urinalysis Appearance, Urine Yellow Bilirubin, Urine Negative Negative Ketones, Urine Negative mg/dL Negative Specific [place] 1.015 1.001-1.030 Urine Protein, Qualitative Negative mg/dL Negative Urobilinogen, Urine Negative EU/dL Negative Leukocyte Negative Negative Glucose Urine Negative mg/dL Negative Hemoglobin, Urine Negative Negative Ph, Urine 6.5 5.0-8.0 Ua Reflex Culture Complete Erythrocyte Sedimentation Rate 10 mm/h 0-17 ING CHECKER * Miscellaneous - Ger Blakely MD - 01/04/2013 11:38 AM LOADING CHECKER Verified Results Collected/Examined: Jan 03, 2013 9:58AM Test Result Flag Acceptable Lipid Profile [Jan 04, 2013 11:38AM GER BLAKELY] Lab all normal including mono screen, blood counts, metabolic panel, thyroid fun ction, glucose, urine. However, chol is high, and pt. needs strict low chol diet to lower chol, needs to exercise 4-5 days per week, 30-45 min., work on 5-10 lb. wt. loss in next 3 mos. and recheck chol levels. Send HO on low chol diet. Also, call lab to see if prolactin level can be added on, very important to evaluate her nipple d/c further, and if not, have pt. come in for repeat lab draw. Hours Post Prandial 10 H Cholesterol Lipid Prof 217 mg/dL H 100-200 Triglycerides 241 mg/dL H 0-150 Hdl 37 mg/dL L 40-110 Ldl Cholesterol 132 mg/dL H 0-99 Total Cholesterol/Hdl Ratio 5.9 H 0.0-4.5 Non- HDL Cholesterol 180 mg/dL H 0-130 CMP-Comprehensive Metabolic Panel [Jan 04, 2013 11:38AM GER BLAKELY] Lab all normal including mono screen, blood counts, metabolic panel, thyroid fun ction, glucose, urine. However, chol is high, and pt. needs strict low chol diet to lower chol, needs to exercise 4-5 days per week, 30-45 min., work on 5-10 lb. wt. loss in next 3 mos. and recheck chol levels. Send HO on low chol diet. Also, call lab to see if prolactin level can be added on, very important to evaluate her nipple d/c further, and if not, have pt. come in for repeat lab draw. Albumin 4.1 g/dL 3.5-5.0 Aspartate Aminotransferase 23 IU/L 15-46 Alanine Aminotransferase 35 IU/L 13-69 Bilirubin Total 0.4 mg/dL 0.2-1.3 Protein Total Serum 7.2 g/dL 6.0-8.2 Calcium 9.4 mg/dL 8.4-10.2 Creatinine 0.7 mg/dL 0.4-1.1 Glucose 77 mg/dL 70-100 Alkaline Phosphatase 66 IU/L 42-140 Sodium 140 MEQ/L 133-147 Potassium 4.7 MEQ/L 3.5-5.1 Chloride 102 MEQ/L 96-112 Anion Gap 11 5-17 Blood Urea Nitrogen 9 mg/dL 7-26 Carbon Dioxide 27 MEQ/L 20-30 Gfrf Aa 112 Chronic Kidney Disease less than 60 mL/min/1.73 sq.m^^ Kidney failure less than 15 mL/min/1.73 sq.m^^ Gfrf Non Aa 93 Chronic Kidney Disease less than 60 mL/min/1.73 sq.m^^ Kidney failure less than 15 mL/min/1.73 sq.m^^ T4 Free [Jan 04, 2013 11:38AM GER BLAKELY] Lab all normal including mono screen, blood counts, metabolic panel, thyroid fun ction, glucose, urine. However, chol is high, and pt. needs strict low chol diet to lower chol, needs to exercise 4-5 days per week, 30-45 min., work on 5-10 lb. wt. loss in next 3 mos. and recheck chol levels. Send HO on low chol diet. Also, call lab to see if prolactin level can be added on, very important to evaluate her nipple d/c further, and if not, have pt. come in for repeat lab draw. T4 Free 1.1 ng/dL 0.8-2.2 Infectious [place] Test [Jan 04, 2013 11:38AM GER BLAKELY] Lab all normal including mono screen, blood counts, metabolic panel, thyroid fun ction, glucose, urine. However, chol is high, and pt. needs strict low chol diet to lower chol, needs to exercise 4-5 days per week, 30-45 min., work on 5-10 lb. wt. loss in next 3 mos. and recheck chol levels. Send HO on low chol diet. Also, call lab to see if prolactin level can be added on, very important to evaluate her nipple d/c further, and if not, have pt. come in for repeat lab draw. Infectious [place] Test Negative Negative CBC with Diff [Jan 04, 2013 11:38AM GER BLAKELY] Lab all normal including mono screen, blood counts, metabolic panel, thyroid fun ction, glucose, urine. However, chol is high, and pt. needs strict low chol diet to lower chol, needs to exercise 4-5 days per week, 30-45 min., work on 5-10 lb. wt. loss in next 3 mos. and recheck chol levels. Send HO on low chol diet. Also, call lab to see if prolactin level can be added on, very important to evaluate her nipple d/c further, and if not, have pt. come in for repeat lab draw. WHITE BLOOD CELL COUNT 7.42 TH/uL 4.00-11.00 Red Blood Cell Count 5.04 MIL/uL H 4.00-5.00 Hemoglobin 14.2 g/dL 12.0-15.0 Hematocrit 43 % 36-45 Mean Corpuscular Volume 86 fL 80-99 Mean Corpuscular Hgb 28 pg 27-34 Mean Corpuscular Hgb Conc 33 % 32-36 Red Cell Distribution Width 13.6 % 9.0-14.5 Platelet Count 377 TH/uL 140-400 Mean Platelet Volume 11.8 fL 9.4-12.3 % Segmented Neutrophils, Auto 57 % 45-78 % Lymphocytes, Auto 33 % 15-47 % Monocytes, Auto 7 % 0-12 % Eosinophils, Auto 2 % 0-7 % Basophils, Auto 1 % 0-2 # Grans 4.21 TH/uL 1.70-6.80 # Lymphs 2.48 TH/uL 1.00-3.30 # Monos 0.51 TH/uL 0.20-0.90 # Eos 0.18 TH/uL 0.00-0.40 # Basos 0.04 TH/uL 0.00-0.10 TSH-Thyroid Stimulating Hormone [Jan 04, 2013 11:38AM GER BLAKELY] Lab all normal including mono screen, blood counts, metabolic panel, thyroid fun ction, glucose, urine. However, chol is high, and pt. needs strict low chol diet to lower chol, needs to exercise 4-5 days per week, 30-45 min., work on 5-10 lb. wt. loss in next 3 mos. and recheck chol levels. Send HO on low chol diet. Also, call lab to see if prolactin level can be added on, very important to evaluate her nipple d/c further, and if not, have pt. come in for repeat lab draw. Thyroid Stimulating Hormone 1.48 uIU/mL 0.47-4.68 UA Dip Urinalysis [Jan 04, 2013 11:38AM GER BLAKELY] Lab all normal including mono screen, blood counts, metabolic panel, thyroid fun ction, glucose, urine. However, chol is high, and pt. needs strict low chol diet to lower chol, needs to exercise 4-5 days per week, 30-45 min., work on 5-10 lb. wt. loss in next 3 mos. and recheck chol levels. Send HO on low chol diet. Also, call lab to see if prolactin level can be added on, very important to evaluate her nipple d/c further, and if not, have pt. come in for repeat lab draw. Appearance, Urine Yellow Bilirubin, Urine Negative Negative Ketones, Urine Negative mg/dL Negative Specific [place] 1.015 1.001-1.030 Urine Protein, Qualitative Negative mg/dL Negative Urobilinogen, Urine Negative EU/dL Negative Leukocyte Negative Negative Glucose Urine Negative mg/dL Negative Hemoglobin, Urine Negative Negative Ph, Urine 6.5 5.0-8.0 UA Reflex Culture [Jan 04, 2013 11:38AM GER BLAKELY] Lab all normal including mono screen, blood counts, metabolic panel, thyroid fun ction, glucose, urine. However, chol is high, and pt. needs strict low chol diet to lower chol, needs to exercise 4-5 days per week, 30-45 min., work on 5-10 lb. wt. loss in next 3 mos. and recheck chol levels. Send HO on low chol diet. Also, call lab to see if prolactin level can be added on, very important to evaluate her nipple d/c further, and if not, have pt. come in for repeat lab draw. Ua Reflex Culture Complete Sedimentation Rate-ESR [Jan 04, 2013 11:38AM GER BLAKELY] Lab all normal including mono screen, blood counts, metabolic panel, thyroid fun ction, glucose, urine. However, chol is high, and pt. needs strict low chol diet to lower chol, needs to exercise 4-5 days per week, 30-45 min., work on 5-10 lb. wt. loss in next 3 mos. and recheck chol levels. Send HO on low chol diet. Also, call lab to see if prolactin level can be added on, very important to evaluate her nipple d/c further, and if not, have pt. come in for repeat lab draw. Erythrocyte Sedimentation Rate 10 mm/h 0-17 ING CHECKER documented in this encounter Plan of Treatment Not on filedocumented as of this encounter Visit Diagnoses Not on filedocumented in this encounter
--- OUTSIDE RECORDS SUMMARY | 2019-06-18 13:43 | XMS REPORT | Encounter Summary ---
Author Author [facility] Organization [facility] Address Unknown Phone Unavailable Care Team Providers Care Ragman Name Role Phone PCP Unavailable Encounter Details Care Team Description Date [place] [address] [address] 01/03/2013 [facility] Encounter [address] [place], [place] [id number] Social History Date Tobacco Use Types Packs/Day [...] Not on filedocumented as of this encounter Procedures Comments Procedure Name Priority Date/Time Associated Diagnosis URINALYSIS REFLEX Routine 01/03/2013 9:58 AM INSURANCE COMPLIANCE ANALYST URINALYSIS (INCLUDES Routine 01/03/2013 MICROSCOPIC REVIEW, IF 9:58 AM INSURANCE COMPLIANCE ANALYST INDICATED) THYROID STIMULATING Routine 01/03/2013 HORMONE 9:58 AM INSURANCE COMPLIANCE ANALYST T4 FREE Routine 01/03/2013 9:58 AM INSURANCE COMPLIANCE ANALYST PROLACTIN Routine 01/03/2013 9:58 AM INSURANCE COMPLIANCE ANALYST LIPID PANEL Routine 01/03/2013 9:58 AM INSURANCE COMPLIANCE ANALYST ERYTHROCYTE SEDIMENTATION Routine 01/03/2013 RATE 9:58 AM INSURANCE COMPLIANCE ANALYST COMPREHENSIVE METABOLIC Routine 01/03/2013 PANEL 9:58 AM INSURANCE COMPLIANCE ANALYST CBC AND DIFF (MANUAL DIFF Routine 01/03/2013 IF NECESSARY) 9:58 AM INSURANCE COMPLIANCE ANALYST INFECTIOUS MONO TEST Routine 01/03/2013 9:58 AM INSURANCE COMPLIANCE ANALYST documented in this encounter Results * Infectious [place] Test (01/03/2013 9:58 AM INSURANCE COMPLIANCE ANALYST) Infectious [place] Negative Negative [facility] Test Specimen Blood Performing Organization Address [facility]/[place] Phone Number [facility] [phone] [place] [address] [facility] * Comprehensive Metabolic Panel (01/03/2013 9:58 AM INSURANCE COMPLIANCE ANALYST) Albumin 4.1 3.5 - 5.0 G/DL [facility] Aspartate 23 15 - 46 IU/L [facility] Aminotransferas e Bilirubin Total 0.4 0.2 - 1.3 MG/DL [facility] Protein Total 7.2 6.0 - 8.2 G/DL [facility] Serum Calcium 9.4 8.4 - 10.2 MG/DL [facility] Creatinine 0.7 0.4 - 1.1 MG/DL [facility] Glucose 77 70 - 100 MG/DL [facility] Alkaline 66 42 - 140 IU/L [facility] Phosphatase Sodium 140 133 - 147 MEQ/L [facility] Potassium 4.7 3.5 - 5.1 MEQ/L [facility] Chloride 102 96 - 112 MEQ/L [facility] Carbon Dioxide 27 20 - 30 MEQ/L [facility] Blood Urea 9 7 - 26 MG/DL [facility] Nitrogen Anion Gap 11 5 - 17 [facility] Alanine 35 13 - 69 IU/L [facility] Aminotransferas e eGFR Female AA 112 [facility] Comment: Chronic Kidney Disease less than 60 mL/min/1.73 sq.m Kidney failure less than 15 mL/min/1.73 sq.m eGFR Female 93 [facility] Non-AA Comment: Chronic Kidney Disease less than 60 mL/min/1.73 sq.m Kidney failure less than 15 mL/min/1.73 sq.m Specimen Blood Performing Organization Address [facility] Phone Number R [phone] [place] [address] [facility] * Lipid Panel (01/03/2013 9:58 AM INSURANCE COMPLIANCE ANALYST) Cholesterol 217 (H) 100 - 200 MG/DL [facility] Triglycerides 241 (H) 0 - 150 MG/DL [facility] HDL Cholesterol 37 (L) 40 - 110 MG/DL [facility] LDL Cholesterol 132 (H) 0 - 99 MG/DL [facility] Cholesterol/HDL 5.9 (H) 0.0 - 4.5 [facility] Ratio Non-HDL 180 (H) 0 - 130 MG/DL [facility] Cholesterol Hours 10 H [facility] Postprandial Specimen Blood Performing Organization Address [facility] Phone Number R [phone] [place] [address] [facility] * T4 Free (01/03/2013 9:58 AM INSURANCE COMPLIANCE ANALYST) T4 Free 1.1 0.8 - 2.2 NG/DL [facility] Specimen Blood Performing Organization Address [facility] Phone Number RL [phone] [place] [address] [facility]QUEST * CBC and Diff (manual diff if necessary) (01/03/2013 9:58 AM INSURANCE COMPLIANCE ANALYST) WBC 7.42 4.00 - 11.00 TH/UL [facility] RBC 5.04 (H) 4.00 - 5.00 MIL/UL [facility] Hemoglobin 14.2 12.0 - 15.0 G/DL [facility] Hematocrit 43 36 - 45 % [facility] MCV 86 80 - 99 FL [facility] MCH 28 27 - 34 PG [facility] MCHC 33 32 - 36 % [facility] RDW 13.6 9.0 - 14.5 % [facility] Platelet Count 377 140 - 400 TH/UL [facility] MPV 11.8 9.4 - 12.3 FL SUNQUEST % Neutrophils 57 45 - 78 % [facility]QUEST %Lymphocytes 33 15 - 47 % [facility]QUEST %Monocytes 7 0 - 12 % [facility] %Eosinophils 2 0 - 7 % [facility] # Basophils 0.04 0.00 - 0.10 TH/UL [facility] # Eosinophils 0.18 0.00 - 0.40 TH/UL [facility] %Basophils 1 0 - 2 % [facility] # Monocytes 0.51 0.20 - 0.90 TH/UL [facility] # Lymphocytes 2.48 1.00 - 3.30 TH/UL [facility] # Granulocytes 4.21 1.70 - 6.80 TH/UL [facility]QUEST Specimen Blood Performing Organization Address [facility] Phone Number R [phone] [place] [address] [facility] * Thyroid Stimulating Hormone (01/03/2013 9:58 AM INSURANCE COMPLIANCE ANALYST) Thyroid 1.48 0.47 - 4.68 UIU/ML [facility] Stimulating Hormone Specimen Blood Performing Organization Address [facility] Phone Number R [phone] [place] [address] [facility] * Urinalysis (01/03/2013 9:58 AM INSURANCE COMPLIANCE ANALYST) Appearance, Yellow [facility] Urine Specific 1.015 1.001 - 1.030 SUN[facility] [place], UA PH Urine 6.5 5.0 - 8.0 [facility] Hemoglobin Negative Negative [facility] Urine Leukocyte Negative Negative [facility] Esterase Bilirubin Urine Negative Negative [facility] Glucose Urine Negative Negative MG/DL [facility] Ketones Urine Negative Negative MG/DL [facility] Protein Urine Negative Negative MG/DL [facility] Qual Urobilinogen Negative Negative EU/DL [facility] Urine Specimen Urine Performing Organization Address [facility] Phone Number R [phone] [place] [address] [facility] * Urinalysis Reflex (01/03/2013 9:58 AM INSURANCE COMPLIANCE ANALYST) UA Reflex Complete [facility] Specimen Urine Performing Organization Address [facility] Phone Number [facility] [address] [place] [address] [facility]QUEST * Erythrocyte Sedimentation Rate (01/03/2013 9:58 AM INSURANCE COMPLIANCE ANALYST) Sed Rate 10 0 - 17 MM/H [facility] Specimen Blood Performing Organization Address [facility] Phone Number [facility] [phone] [place] [address] [facility] * Prolactin (01/03/2013 9:58 AM INSURANCE COMPLIANCE ANALYST) Prolactin 12 3 - 19 NG/ML [facility] Specimen Blood Performing Organization Address [facility] Phone Number [facility] [phone] [place] [address] SUNQUEST documented in this encounter Visit Diagnoses Not on filedocumented in this encounter
--- OUTSIDE RECORDS SUMMARY | 2019-06-18 13:43 | XMS REPORT | Encounter Summary ---
Author Author [facility] Organization [facility] Address Unknown Phone Unavailable Care Team Providers Care Electrostatic Paint Operator Name Role Phone Calli Plummer MD PCP Encounter Details Care Team Description Date [place] [address] [facility] [address] [place] [address] 12/30/2012 [facility] Social History Date Tobacco Use Types Packs/Day Years Used Never Assessed Sex Assigned at Date Recorded Not on file Industry Job Start Date Occupation Not on file Not on file Not on file Travel End Travel History Travel Start No recent travel history available. documented as of this encounter Plan of Treatment Not on filedocumented as of this encounter Visit Diagnoses Not on filedocumented in this encounter
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
--- OUTSIDE RECORDS SUMMARY | 2019-06-18 13:43 | XMS REPORT | Encounter Summary ---
Author Author [facility] Organization [facility] Address Unknown Phone Unavailable Care Team Providers Care Brushing Operator Name Role Phone Ger Blakely MD PCP Encounter Details Care Team Description [place] [address] [place] [address] 01/06/2013 [employer] Note [facility] [address] [place], [place] [id number] Social History Date Tobacco Use Types Packs/Day Years Used Never Assessed Sex Assigned at Date Recorded Not on file Industry Job Start Date Occupation Not on file Not on file Not on file Travel End Travel History Travel Start No recent travel history available. documented as of this encounter Miscellaneous Notes * Chika - Ger Blakely MD - 01/06/2013 4:45 PM TALLOW MA[employer]ER Verified Results Collected/Examined: Jan 03, 2013 9:58AM Test Result Flag Acceptable Prolactin 12 ng/mL 3-19 OW MAKER * Chika - Ger Blakely MD - 01/06/2013 4:45 PM TALLOW MAKER Verified Results Collected/Examined: Jan 03, 2013 9:58AM Test Result Flag Acceptable Prolactin [Jan 06, 2013 10:04PM GER BLAKELY] Prolactin level normal, which means pituitary gland likely functioning normally and not the cause of nipple d/c. Prolactin 12 ng/mL 3-19 OW MAKER documented in this encounter Plan of Treatment Not on filedocumented as of this encounter Visit Diagnoses Not on filedocumented in this encounter
--- OUTSIDE RECORDS SUMMARY | 2019-06-18 13:43 | XMS REPORT ---
Author Author LUIZ JASON Organization [facility] Address [address] [place] [address] Care Team Providers Care Senior Behavioral Scientist Name Role Phone LUIZ JASON Unavailable PROBLEMS Type Condition ICD9-CM Code HNO97-SP Code Onset Dates Condition Status SNOMED Code Problem Acute asthma exacerbation J45.901 Active 347365554 Problem Severe persistent asthma without complication J45.50 Active 093189083 Problem Vitamin D deficiency E55.9 Active 87658614 Problem Moderate asthma without complication, unspecified whether persistent J45.909 Active 531531414 Problem Moderate persistent asthma with exacerbation J45.41 Active 904633269 Problem Chronic fatigue R53.82 Active 50594751 Problem Polydipsia R63.1 Active 80828908 ALLERGIES Substance Reaction Event Type Date Status Penicillin V Potassium rash Drug Allergy Sep, Active ENCOUNTERS Encounter Location Date Diagnosis [place] [address] [address] Oct, [place] [address] [address] Oct, [place] [address] [place] [id number] [place] [address] Sep, Severe persistent asthma without complication J45.50 [facility] [address] [place] [id number] [place] [address] Jul, Moderate persistent asthma with exacerbation J45.41 [facility] [address] [address] May, Moderate persistent asthma with exacerbation J45.41 [facility] [address] [place] [id number] [place] [address] Dec, Vitamin D deficiency E55.9 [facility] [address] [place] [address] Dec, [place] [address] [address] Dec, Near syncope R55 ; Chronic fatigue R53.82 ; Dizziness R42 ; Polyuria R35.8 and Polydipsia R63.1 [facility] [address] [place] [address] Nov, [facility] [address] [place] [address] Nov, Moderate asthma without complication, unspecified whether persistent J45.909 [facility] [address] [address] Nov, [place] [address] [address] Sep, [facility] [address] [address] Sep, Moderate persistent asthma with exacerbation J45.[address] [address] Sep, [facility] [place] [id number] [place] [address] Sep, Wheezing R06.2 [facility] [address] [address] Aug, Wheezing R06.2 and Acute asthma exacerbation J45.901 IMMUNIZATIONS No Known Immunizations SOCIAL HISTORY Never Assessed REASON FOR VISIT Asthma Pt needing med refills, also has a few raised brown bumps on L arm wants looked at. Pt reports has not had a mammogram since age 38. Isidoro Skinner PLAN OF CARE Activity Details Follow Up 4 Weeks Reason:asthma VITAL SIGNS Height 64 in 2018-09-22 Weight 203.5 lbs 2018-09-22 Temperature 97.8 degrees Fahrenheit 2018-09-22 Heart Rate 80 bpm 2018-09-22 Respiratory Rate 18 2018-09-22 BMI 34.93 kg/m2 2018-09-22 Blood pressure systolic 122 mmHg 2018-09-22 Blood pressure diastolic 76 mmHg 2018-09-22 MEDICATIONS Medication Instructions Dosage Frequency Start Date End Date Duration Status Ipratropium-Albuterol 0.5-2.5 (3) MG/3ML Inhalation every 6 hrs 3 ml 6h Sep, Active Singulair 10 mg Orally Once a day 1 tablet in the evening 24h Active Cetirizine HCl 10 mg Orally Once a day 1 tablet 24h Sep, March, 30 day(s) Active Pulmicort Flexhaler 180 MCG/ACT Inhalation Twice a day 1 puff 12h Sep, Active Naproxen 500 mg Orally every 12 hrs 1 tablet with food or milk as needed 12h Sep, Active Ipratropium-Albuterol 20-100 MCG/ACT Inhalation Four times a day 1 puff 6h Sep, 30 days Active Ipratropium-Albuterol 20-100 MCG/ACT Inhalation Four times a day 1 puff 6h Sep, 30 days Active RESULTS No Results PROCEDURES No Known procedures INSTRUCTIONS MEDICATIONS ADMINISTERED No Known Medications MEDICAL (GENERAL) HISTORY Type Description Date Medical History PCOS (Polycystic Ovary Syndrome) Medical History gestational diabetes Medical History asthma Surgical History No Surgical history information Hospitalization History Multiple times for asthma Hospitalization History PT [facility]- [facility] 2013
--- OUTSIDE RECORDS SUMMARY | 2019-06-18 13:44 | XMS REPORT ---
Author Author BENJI GALDAMEZ Organization [facility] Address [address] [place] [address] Care Team Providers Care Trumpet Player Name Role Phone BENJI GALDAMEZ Unavailable PROBLEMS Type Condition ICD9-CM Code VTV04-IE Code Onset Dates Condition Status SNOMED Code Problem Vitamin D deficiency E55.9 Active 19206422 Problem Chronic fatigue R53.82 Active 62715429 Problem Moderate persistent asthma with exacerbation J45.41 Active 962755116 Problem Acute asthma exacerbation J45.901 Active 479164281 Problem Polydipsia R63.1 Active 11061446 Problem Moderate asthma without complication, unspecified whether persistent J45.909 Active 005908926 ALLERGIES No Information ENCOUNTERS Encounter Location Date Diagnosis [facility] [address] [place] [id number] [place] [address] Dec, Vitamin D deficiency E55.9 [facility] [address] [address] Dec, [facility] [address] [place] [id number] [place] [address] Dec, Near syncope R55 ; Chronic fatigue R53.82 ; Dizziness R42 ; Polyuria R35.8 and Polydipsia R63.1 [facility] [address] [place] [id number] [place] [address] Nov, [facility] [address] [place] [id number] [place] [address] Nov, Moderate asthma without complication, unspecified whether persistent J45.909 [facility] [address] [place] [id number] [place] [address] Nov, [facility] [address] [place] [id number] [place] [address] Sep, [facility] [address] [place] [id number] [address] Sep, Moderate persistent asthma with exacerbation J45.41 [facility] [address] [place] [id number] [address] Sep, [facility] [address] [place] [id number] [address] Sep, Wheezing R06.2 [facility] [address] [facility] [id number] [address] Aug, Wheezing R06.2 and Acute asthma exacerbation J45.901 IMMUNIZATIONS No Known Immunizations SOCIAL HISTORY Never Assessed REASON FOR VISIT PLAN OF CARE VITAL SIGNS MEDICATIONS Unknown Medications RESULTS No Results PROCEDURES No Known procedures INSTRUCTIONS MEDICATIONS ADMINISTERED No Known Medications MEDICAL (GENERAL) HISTORY Type Description Date Medical History PCOS (Polycystic Ovary Syndrome) Medical History gestational diabetes Medical History asthma [facility]
--- OUTSIDE RECORDS SUMMARY | 2019-06-18 13:44 | XMS REPORT ---
Author Author SIMONE Braden Organization [facility] Address [address] [place] [address] Care Team Providers Care Store Operations Specialist Name Role Phone SIMONE Braden Unavailable PROBLEMS Type Condition ICD9-CM Code BJQ15-GT Code Onset Dates Condition Status SNOMED Code Problem Vitamin D deficiency E55.9 Active 32659471 Problem Chronic fatigue R53.82 Active 96510687 Problem Moderate persistent asthma with exacerbation J45.41 Active 430478745 Problem Acute asthma exacerbation J45.901 Active 961286284 Problem Polydipsia R63.1 Active 04344763 Problem Moderate asthma without complication, unspecified whether persistent J45.909 Active 161803701 ALLERGIES No Information ENCOUNTERS Encounter Location Date Diagnosis [facility] [address] [place] [id number] [place] [address] Dec, Vitamin D deficiency E55.9 [facility] [address] [place] [id number] [place] [address] Dec, [facility] [address] [place] [id number] [place] [address] Dec, Near syncope R55 ; Chronic fatigue R53.82 ; Dizziness R42 ; Polyuria R35.8 and Polydipsia R63.1 [facility] [address] [place] [id number] [place] [address] Nov, [facility] [address] [place] [id number] [place] [address] Nov, Moderate asthma without complication, unspecified whether persistent J45.909 [facility] [address] [place] [id number] [place] [address] Nov, [facility] [address] [id number] [address] Sep, [facility] [address] [address] Sep, Moderate persistent asthma with exacerbation J45.41 [facility] [address] [address] Sep, [facility] [address] [place] [address] Sep, Wheezing R06.2 [facility] [address] [place] [id number] [address] Aug, Wheezing R06.2 and Acute asthma exacerbation J45.901 IMMUNIZATIONS No Known Immunizations SOCIAL HISTORY Never Assessed REASON FOR VISIT Refill request PLAN OF CARE VITAL SIGNS MEDICATIONS Unknown Medications RESULTS No Results PROCEDURES No Known procedures INSTRUCTIONS MEDICATIONS ADMINISTERED No Known Medications MEDICAL (GENERAL) HISTORY Type Description Date Medical History PCOS (Polycystic Ovary Syndrome) Medical History gestational diabetes Medical History asthma Hospitalization History Multiple times for asthma Hospitalization History PT [facility] 2013
--- OUTSIDE RECORDS SUMMARY | 2019-06-18 13:44 | XMS REPORT ---
Author Author SIMONE Braden [facility] Address [address] [place] [address] Care Team Providers Care Keyboard Specialist Name Role Phone SIMONE Braden Unavailable PROBLEMS Type Condition ICD9-CM Code MNF88-NP Code Onset Dates Condition Status SNOMED Code Problem Vitamin D deficiency E55.9 Active 78928405 Problem Chronic fatigue R53.82 Active 64087223 Problem Moderate persistent asthma with exacerbation J45.41 Active 409412781 Problem Acute asthma exacerbation J45.901 Active 549536017 Problem Polydipsia R63.1 Active 89967824 Problem Moderate asthma without complication, unspecified whether persistent J45.909 Active 622762178 ALLERGIES No Information ENCOUNTERS Encounter Location Date Diagnosis [facility] [address] [place] [id number] [place] [address] Dec, Vitamin D deficiency E55.9 [facility] [address] [place] [id number] [place] [address] Dec, [facility] [address] [place] [id number] [place] [address] Dec, Near syncope R55 ; Chronic fatigue R53.82 ; Dizziness R42 ; Polyuria R35.8 and Polydipsia R63.1 [facility] [address] [place] [id number] [place] [address] Nov, [facility] [address] [place] [id number] [place] [address] Nov, Moderate asthma without complication, unspecified whether persistent J45.909 [facility] [address] [place] [id number] [place] [address] Nov, [facility] [address] [id number] [address] Sep, [facility] [address] [place] [id number] [address] Sep, Moderate persistent asthma with exacerbation J45.41 [facility] [address] [place] [id number] [address] Sep, [facility] WALK IN [facility] [address], [place] [address] Sep, Wheezing R06.2 [facility] WALK IN [facility] [address] [place] [id number] [address] Aug, Wheezing R06.2 and Acute asthma exacerbation J45.901 IMMUNIZATIONS No Known Immunizations SOCIAL HISTORY Never Assessed REASON FOR VISIT Combivent refill PLAN OF CARE VITAL SIGNS MEDICATIONS Medication Instructions Dosage Frequency Start Date End Date Duration Status Combivent Respimat 20-100 MCG/ACT Inhalation Q 4-6 hours 1 puff Aug, 30 days Active RESULTS No Results PROCEDURES No Known procedures INSTRUCTIONS MEDICATIONS ADMINISTERED No Known Medications MEDICAL (GENERAL) HISTORY Type Description Date Medical History PCOS (Polycystic Ovary Syndrome) Medical History gestational diabetes Medical History asthma Hospitalization History Multiple times for asthma Hospitalization History PT [facility] 2013
--- OUTSIDE RECORDS SUMMARY | 2019-06-18 13:44 | XMS REPORT ---
Author Author PÉREZ MARTE [facility] Address [address] [place] [address] Care Team Providers Care Hot Metal Crane Operator Name Role Phone PÉREZ MARTE Unavailable PROBLEMS Type Condition ICD9-CM Code RPC80-YJ Code Onset Dates Condition Status SNOMED Code Problem Vitamin D deficiency E55.9 Active 20025482 Problem Chronic fatigue R53.82 Active 37807276 Problem Moderate persistent asthma with exacerbation J45.41 Active 135683579 Problem Acute asthma exacerbation J45.901 Active 496485973 Problem Polydipsia R63.1 Active 32961656 Problem Moderate asthma without complication, unspecified whether persistent J45.909 Active 103181822 ALLERGIES No Information ENCOUNTERS Encounter Location Date Diagnosis [facility] [place] [address] [place] [id number] [place] [address] Dec, Vitamin D deficiency E55.9 [facility] [place] [address] [address] Dec, [facility] [place] [address] [place] [id number] [place] [address] Dec, Near syncope R55 ; Chronic fatigue R53.82 ; Dizziness R42 ; Polyuria R35.8 and Polydipsia R63.1 [facility] [address] [place] [id number] [place] [address] Nov, [facility] [address] [address] Nov, Moderate asthma without complication, unspecified whether persistent J45.909 [facility] [address] [place] [id number] [place] [address] Nov, [facility] [place] [address] [address] Sep, [facility] [address] [address] Sep, Moderate persistent asthma with exacerbation J45.41 [facility] [place] [address] [address] Sep, [facility] IN [facility] [address] [address] Sep, Wheezing R06.2 [facility] [address] [place] [id number] [address] Aug, Wheezing R06.2 and Acute asthma exacerbation [...] for asthma Hospitalization History PT [facility] 2013
--- OUTSIDE RECORDS SUMMARY | 2019-06-18 13:44 | XMS REPORT ---
Author Author LUIZ JASON Organization [facility] Address [address] [place] [address] Care Team Providers Care Catalogue Clerk Name Role Phone LUIZ JASON Unavailable PROBLEMS Type Condition ICD9-CM Code WRI31-IQ Code Onset Dates Condition Status SNOMED Code Problem Vitamin D deficiency E55.9 Active 89705053 Problem Chronic fatigue R53.82 Active 06185485 Problem Moderate persistent asthma with exacerbation J45.41 Active 014211710 Problem Acute asthma exacerbation J45.901 Active 817514199 Problem Polydipsia R63.1 Active 21613429 Problem Moderate asthma without complication, unspecified whether persistent J45.909 Active 035413612 ALLERGIES Substance Reaction Event Type Date Status Penicillin V Potassium rash Drug Allergy May, Active ENCOUNTERS Encounter Location Date Diagnosis [facility] [address] [address] May, Moderate persistent asthma with exacerbation J45.41 [place] [address] [address] 28 Dec, 2017 Vitamin D deficiency E55.9 [facility] [address] [place] [id number] [place] [address] Dec, [facility] [address] [address] Dec, Near syncope R55 ; Chronic fatigue R53.82 ; Dizziness R42 ; Polyuria R35.8 and Polydipsia R63.1 [facility] [address] [address] Nov, [facility] [address] [address] Nov, Moderate asthma without complication, unspecified whether persistent J45.909 [facility] [address] [place] [id number] [address] Nov, [facility] [address] [address] Sep, [facility] [address] [place] [address] Sep, Moderate persistent asthma with exacerbation J45.41 [facility] [address] [place] [address] Sep, [facility] [address] [place] [address] Sep, Wheezing R06.2 [facility] [address] [address] Aug, Wheezing R06.2 and Acute asthma exacerbation J45.901 IMMUNIZATIONS No Known Immunizations SOCIAL HISTORY Never Assessed REASON FOR VISIT Medication refill request PLAN OF CARE VITAL SIGNS MEDICATIONS Medication [...] Multiple times for asthma Hospitalization History PT [facility] 2013
--- OUTSIDE RECORDS SUMMARY | 2019-06-18 13:44 | XMS REPORT ---
Author Author LUIZ JASON Organization [facility] Address [address] [place] [address] Care Team Providers Care Fashion Merchandiser Name Role Phone LUIZ JASON Unavailable PROBLEMS Type Condition ICD9-CM Code AYC46-VU Code Onset Dates Condition Status SNOMED Code Problem Vitamin D deficiency E55.9 Active 91838504 Problem Chronic fatigue R53.82 Active 28906493 Problem Moderate persistent asthma with exacerbation J45.41 Active 106733846 Problem Acute asthma exacerbation J45.901 Active 380003951 Problem Polydipsia R63.1 Active 28841663 Problem Moderate asthma without complication, unspecified whether persistent J45.909 Active 556839055 ALLERGIES No Information ENCOUNTERS Encounter Location Date Diagnosis [place] [address] [place] [id number] [place] [address] Aug, [facility] [address] [address] Jul, Moderate persistent asthma with exacerbation J45.41 [facility] [address] [place] [id number] [place] [address] May, Moderate persistent asthma with exacerbation J45.41 [facility] [address] [id number] [place] [address] Dec, Vitamin D deficiency E55.9 [facility] [id number] [place] [address] Dec, [facility] [address] [address] Dec, Near syncope R55 ; Chronic fatigue R53.82 ; Dizziness R42 ; Polyuria R35.8 and Polydipsia R63.1 [facility] [address] [id number] [place] [address] Nov, [facility] [address] [address] Nov, Moderate asthma without complication, unspecified whether persistent J45.909 [facility] [address] [address] Nov, [facility] [address] [place] [id number] [place] [address] Sep, [facility] [address] [place] [address] Sep, Moderate persistent asthma with exacerbation J45.41 [place] [address] [address] Sep, [facility] [place] [address] [address] Sep, Wheezing R06.2 [facility] [place] [address] [address] Aug, Wheezing R06.2 and Acute asthma exacerbation [...] Multiple times for asthma [facility]
--- OUTSIDE RECORDS SUMMARY | 2019-06-18 13:44 | XMS REPORT ---
Author Author LUIZ JASON Organization [facility] Address [address] [place] [address] Care Team Providers Care Coverage Specialist Rn Name Role Phone LUIZ JASON Unavailable PROBLEMS Type Condition ICD9-CM Code DIH26-MW Code Onset Dates Condition Status SNOMED Code Problem Vitamin D deficiency E55.9 Active 19372258 Problem Chronic fatigue R53.82 Active 15543351 Problem Moderate persistent asthma with exacerbation J45.41 Active 489277518 Problem Acute asthma exacerbation J45.901 Active 524208411 Problem Polydipsia R63.1 Active 02917506 Problem Moderate asthma without complication, unspecified whether persistent J45.909 Active 885431531 ALLERGIES No Information ENCOUNTERS Encounter Location Date Diagnosis [facility] [id number] [place] [address] Dec, Vitamin D deficiency E55.9 [facility] [address] [address] Dec, [facility] [id number] [place] [address] Dec, Near syncope R55 ; Chronic fatigue R53.82 ; Dizziness R42 ; Polyuria R35.8 and Polydipsia R63.1 [facility] [id number] [place] [address] Nov, [facility] [address] [address] Nov, Moderate asthma without complication, unspecified whether persistent J45.909 [facility] [id number] [place] [address] Nov, [facility] [address] [address] Sep, [facility] [id number] [address] Sep, Moderate persistent asthma with exacerbation J45.41 [facility] [id number] [address] Sep, [facility] [id number] [address] Sep, Wheezing R06.2 [facility] [address] [id number] [address] Aug, Wheezing R06.2 and Acute asthma exacerbation J45.901 IMMUNIZATIONS No Known Immunizations SOCIAL HISTORY Never Assessed REASON FOR VISIT Lab results PLAN OF CARE VITAL SIGNS MEDICATIONS Medication Instructions Dosage Frequency Start Date End Date Duration Status Fish Oil 1000 MG Orally Twice a day 2 capsules 12h Dec, Apr, 30 day(s) Active Cholecalciferol 56278 UNIT Orally once weekly 2 capsules Dec, March, 12 weeks Active RESULTS No Results PROCEDURES No Known procedures INSTRUCTIONS MEDICATIONS ADMINISTERED No Known Medications MEDICAL (GENERAL) HISTORY Type Description Date Medical History PCOS (Polycystic Ovary Syndrome) Medical History gestational diabetes Medical History asthma Hospitalization History Multiple times for asthma Hospitalization History [facility] 2013
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
--- OUTSIDE RECORDS SUMMARY | 2019-06-18 13:44 | XMS REPORT ---
Author Author LUIZ JASON Organization [facility] Address [address] [place] [address] Care Team Providers Care Traffic Clerk Name Role Phone LUIZ JASON Unavailable PROBLEMS Type Condition ICD9-CM Code NYL18-BJ Code Onset Dates Condition Status SNOMED Code Problem Vitamin D deficiency E55.9 Active 29113859 Problem Chronic fatigue R53.82 Active 35150433 Problem Moderate persistent asthma with exacerbation J45.41 Active 097580584 Problem Acute asthma exacerbation J45.901 Active 000482944 Problem Polydipsia R63.1 Active 70696674 Problem Moderate asthma without complication, unspecified whether persistent J45.909 Active 966944869 ALLERGIES No Information ENCOUNTERS Encounter Location Date Diagnosis [facility] [id number] [place] [address] Dec, Vitamin D deficiency E55.9 [facility] [address] [address] Dec, [facility] [id number] [place] [address] Dec, Near syncope R55 ; Chronic fatigue R53.82 ; Dizziness R42 ; Polyuria R35.8 and Polydipsia R63.1 [facility] [id number] [place] [address] Nov, [facility] [id number] [place] [address] Nov, Moderate asthma without complication, unspecified whether persistent J45.909 [facility] [id number] [place] [address] Nov, [facility] [address] [address] Sep, [facility] [address] [facility] [id number] [address] Sep, Moderate persistent asthma with exacerbation J45.41 [facility] [address] [facility] [id number] [address] Sep, [facility] [id number] [address] Sep, Wheezing R06.2 [facility] [address] [facility] [id number] [address] Aug, Wheezing R06.2 and Acute asthma exacerbation J45.901 IMMUNIZATIONS No Known Immunizations SOCIAL HISTORY Never Assessed REASON FOR VISIT medication PLAN OF CARE VITAL SIGNS MEDICATIONS Medication Instructions Dosage Frequency Start Date End Date Duration Status Ergocalciferol 16694 UNIT Orally once weekly 2 capsules Dec, Active RESULTS No Results PROCEDURES No Known procedures INSTRUCTIONS MEDICATIONS ADMINISTERED No Known Medications MEDICAL (GENERAL) HISTORY Type Description Date Medical History PCOS (Polycystic Ovary Syndrome) Medical History gestational diabetes Medical History asthma Hospitalization History Multiple times for asthma Hospitalization History PT [facility] 2013
== END 2019-06-18 09:15 | disposition home or self-care (01) ==
LOC: EDUNIT# 08:08 → ER FS 08:14
DX: S09.90XA Unspecified injury of head, initial encounter (principal); S01.01XA Laceration without foreign body of scalp, initial encounter; S16.1XXA Strain of muscle, fascia and tendon at neck level, initial encounter; J45.909 Unspecified asthma, uncomplicated; E78.00 Pure hypercholesterolemia, unspecified; F17.210 Nicotine dependence, cigarettes, uncomplicated; Z88.0 Allergy status to penicillin; Z88.5 Allergy status to narcotic agent; W20.8XXA Other cause of strike by thrown, projected or falling object, initial encounter; Y92.59 Other trade areas as the place of occurrence of the external cause
CPT/HCPCS: 12001; 90471; 90715

== ENCOUNTER 2019-08-11 13:13 | Emergency (ER) | payer MEDICAID ==
[~2019-08-11] VITALS: Ht 163 cm; Wt 93.1 kg
[~2019-08-11 13:13] MED LIST changes: +NAPR-915
[2019-08-11 13:45] LABS: AMPHETAMINE SCREEN, URINE NEGATIVE (NEGATIVE); BARBITURATE SCREEN URINE NEGATIVE (NEGATIVE); BENZODIAZEPINES SCREEN URINE NEGATIVE (NEGATIVE); CANNABINOID SCREEN, URINE POSITIVE (NEGATIVE); COCAINE SCREEN URINE NEGATIVE (NEGATIVE); METHADONE STAT NEGATIVE (NEGATIVE); METHAMPHETAMINE SCREEN URINE S NEGATIVE (NEGATIVE); OPIATE SCREEN URINE NEGATIVE (NEGATIVE); OXYCODONE STAT NEGATIVE (NEGATIVE); PROPOXYPHENE STAT NEGATIVE (NEGATIVE); TRICYCLIC ANTIDEPRESSANTS SCRE NEGATIVE (NEGATIVE)
[2019-08-11] MEDS ORDERED: RT-ALBUTEROL/IPRATROPIUM 3 ML (DUONEB) VIAL INH ONE (14:00)
--- NOTE | 2019-08-11 14:07 | ED Respiratory ---
General Chief Complaint: Respiratory Problems Stated Complaint: LT HAND PAIN Nursing Triage Note: PT REPORTS SHE WAS SEEN IN URGENT CARE ABOUT AN HOUR AGO AND WAS GIVEN A STEROID INJECTION AND SHE FEELS SHORT OF BREATH NOW. Source: patient Exam Limitations: no limitations History of Present Illness Date Seen by Provider: Aug 11, 2019 Time Seen by Provider: 14:02 Initial Comments The patient is a 44-year-old white female who reports she has been asthmatic since . She has a multitude of medications which she applies. She states she was seen in urgent care about an hour ago and was given a shot of steroids IM. She now feels more short of breath than she did at that time. She states that she has stopped smoking for about a week. About a week ago she vapped once on a friend's device and has felt worse since. She has run out of her Combivent inhaler in which she trusts greatly. She then used up what ampules she might have had of DuoNeb in her nebulizer. For reasons not clear to me she is not able to get new supplies for about one week. Timing/Duration: week, getting worse Severity: moderate Prior Episodes/Possible Cause: occasional episodes Allergies and Home Medications Allergies Coded Allergies: hydrocodone (Verified Allergy, Severe, 03/31/17) amoxicillin (Unverified Adverse Reaction, Mild, hives, 06/18/19) Home Medications Albuterol Sulfate 1 Puff Puff, 2 PUFF IH Q4H USE WITH SPACER AT ALL TIMES Prescribed by: PATRICIA JIMENEZ on 03/31/17 1816 Albuterol/Ipratropium 4 Gm Aero, 2 PUFF IH Q4H Prescribed by: PATRICIA JIMENEZ on 07/01/17 2348 Montelukast Sodium 10 Mg Tablet, 10 MG PO DAILY Prescribed by: PATRICIA JIMENEZ on 07/01/17 2348 Prednisone 20 Mg Tab, 20 MG PO DAILY Take 3 tabs(60mg)daily,decrease by 1/2 tab(10mg)every other day. Prescribed by: ELIZABET ORANTES on 08/11/19 1434 Patient Home Medication List Home Medication List Reviewed: Yes Review of Systems Review of Systems Constitutional: see HPI EENTM: no symptoms reported Respiratory: see HPI, cough, dyspnea on exertion, short of breath, wheezing, other (she admits using a pro-air device about hourly since this morning.) Cardiovascular: no symptoms reported Gastrointestinal: no symptoms reported Genitourinary: no symptoms reported Musculoskeletal: no symptoms reported, other (cramps in her left hand) Skin: no symptoms reported Psychiatric/Neurological: No Symptoms Reported Hematologic/Lymphatic: No Symptoms Reported Immunological/Allergic: no symptoms reported Past Ewbnrjs-Grnppe-Vcxsdl Hx Patient Social History Alcohol Use: Denies Use Recreational Drug Use: No Smoking Status: Current Everyday Smoker Type Used: Cigarettes Former Smoker, Quit: Jan 14, 2017 2nd Hand Smoke Exposure: No Recent Foreign Travel: No Contact w/Someone Who Travel: No Recent Infectious Disease Expo: No Recent Hopitalizations: No Physical Abuse: No Sexual Abuse: No Mistreated: No Fear: No Seasonal Allergies Seasonal Allergies: Yes Past Medical History Surgeries: No Respiratory: Yes Asthma Cardiac: Yes (VASOVAGAL SYNCOPE) High Cholesterol, Syncope Neurological: No Reproductive Disorders: Yes (CERVICAL DYSPLASIA--NO TREATMENT) Female Reproductive Disorders: Ovarian Cyst, Polycystic Ovarian Dis Genitourinary: No Gastrointestinal: No Musculoskeletal: No Endocrine: No HEENT: No Cancer: No (CERVICAL DYSPLASIA--NO TREATMENT--STATES "I WENT AWAY ON IT'S OWN" ) Cervical Psychosocial: No Integumentary: No Blood Disorders: No Physical Exam Vital Signs - First Documented 08/11/19 13:18 Temp 36.6 Pulse 99 Resp 22 B/P (MAP) 144/97 (113) O2 Delivery Room Air Capillary Refill : Less Than 3 Seconds Height: 5'3.00" Weight: 190lbs. oz. 86.622841xv; 35.00 BMI Method:Stated General Appearance: obese, other (anxious) Eyes: Bilateral Eye Normal Inspection HEENT: normal ENT inspection Neck: full range of motion Respiratory: other (reasonably good breath sounds with scattered wheezing especially the left posterior base) Cardiovascular: normal peripheral pulses, regular rate, rhythm, no edema, no gallop, no JVD, no murmur Gastrointestinal: normal bowel sounds, non tender, soft, no organomegaly Extremities: normal range of motion Neurologic/Psychiatric: tire changer aircraft II-XII nml as tested, no motor/sensory deficits, alert, normal mood/affect, oriented x 3 Skin: normal color Lymphatic: no adenopathy Progress/Results/Core Measures Suspected Sepsis Recent Fever Within 48 Hours: No Infection Criteria Present: None New/Unexplained Altered Menta: No Sepsis Screen: No Definite Risk SIRS Temperature: Pulse: 99 Respiratory Rate: 22 Laboratory Tests 08/11/19 13:45: White Blood Count 13.3H Blood Pressure 144 /97 Mean: 113 Laboratory Tests 08/11/19 13:45: Creatinine 0.72, Platelet Count 365, Total Bilirubin 1.1H Results/Orders Lab Results Laboratory Tests Test 08/11/19 13:28 08/11/19 13:45 Range/Units Urine Opiates Screen NEGATIVE NEGATIVE Urine Oxycodone Screen NEGATIVE NEGATIVE Urine Methadone Screen NEGATIVE NEGATIVE Urine Propoxyphene Screen NEGATIVE NEGATIVE Urine Barbiturates Screen NEGATIVE NEGATIVE Ur Tricyclic Antidepressants Screen NEGATIVE NEGATIVE Urine Phencyclidine Screen NEGATIVE NEGATIVE Urine Amphetamines Screen NEGATIVE NEGATIVE Urine Methamphetamines Screen NEGATIVE NEGATIVE Urine Benzodiazepines Screen NEGATIVE NEGATIVE Urine Cocaine Screen NEGATIVE NEGATIVE Urine Cannabinoids Screen POSITIVE H NEGATIVE White Blood Count 13.3 H 4.3-11.0 10^3/uL Red Blood Count 5.62 4.35-5.85 10^6/uL Hemoglobin 15.6 11.5-16.0 G/DL Hematocrit 48 35-52 % Mean Corpuscular Volume 85 80-99 FL Mean Corpuscular Hemoglobin 28 25-34 PG Mean Corpuscular Hemoglobin Concent 33 32-36 G/DL Red Cell Distribution Width 13.5 10.0-14.5 % Platelet Count 365 130-400 10^3/uL Mean Platelet Volume 10.4 7.4-10.4 FL Neutrophils (%) (Auto) 91 H 42-75 % Lymphocytes (%) (Auto) 7 L 12-44 % Monocytes (%) (Auto) 2 0-12 % Eosinophils (%) (Auto) 0 0-10 % Basophils (%) (Auto) 0 0-10 % Neutrophils # (Auto) 12.0 H 1.8-7.8 X 10^3 Lymphocytes # (Auto) 0.9 L 1.0-4.0 X 10^3 Monocytes # (Auto) 0.2 0.0-1.0 X 10^3 Eosinophils # (Auto) 0.0 0.0-0.3 10^3/uL Basophils # (Auto) 0.0 0.0-0.1 10^3/uL Neutrophils % (Manual) 85 % Lymphocytes % (Manual) 7 % Monocytes % (Manual) 1 % Band Neutrophils 7 % Blood Morphology Comment NORMAL Sodium Level 140 135-145 MMOL/L Potassium Level 4.2 3.6-5.0 MMOL/L Chloride Level 104 98-107 MMOL/L Carbon Dioxide Level 23 21-32 MMOL/L Anion Gap 13 5-14 MMOL/L Blood Urea Nitrogen 9 7-18 MG/DL Creatinine 0.72 0.60-1.30 MG/DL Estimat Glomerular Filtration Rate > 60 BUN/Creatinine Ratio 13 Glucose Level 149 H 70-105 MG/DL Calcium Level 10.0 8.5-10.1 MG/DL Corrected Calcium 8.5-10.1 MG/DL Total Bilirubin 1.1 H 0.1-1.0 MG/DL Aspartate Amino Transf (AST/SGOT) 31 5-34 U/L Alanine Aminotransferase (ALT/SGPT) 23 0-55 U/L Alkaline Phosphatase 83 40-136 U/L Total Protein 8.6 H 6.4-8.2 GM/DL Albumin 4.9 H 3.2-4.5 GM/DL My Orders Orders - ELIZABET ORANTES MD Drug Screen Stat (Urine) (08/11/19 13:29) Cbc With Automated Diff (08/11/19 13:37) Comprehensive Metabolic Panel (08/11/19 13:37) Albuterol/Ipra Inhalation Soln (Duoneb I (08/11/19 14:00) Svn Small Volume Nebulizer (08/11/19 13:59) Manual Differential (08/11/19 13:45) Medications Given in ED Current Medications Medications Dose Ordered Sig/Ted Route Start Time Stop Time Status Last Admin Dose Admin Albuterol/ Ipratropium 3 ml ONCE ONCE INH 08/11/19 14:00 08/11/19 14:02 DC 08/11/19 14:13 3 ML Vital Signs/I&O 08/11/19 13:18 Temp 36.6 Pulse 99 Resp 22 B/P (MAP) 144/97 (113) O2 Delivery Room Air Capillary Refill : Less Than 3 Seconds Blood Pressure Mean: 113 Departure Communication (Admissions) 1450 she is much calmer. There is much less wheezing noted to auscultation Impression Primary Impression: COPD in exacerbation Disposition: 01 HOME, SELF-CARE Condition: Improved Departure-Patient Inst. Decision time for Depature: 14:31 Referrals: LUIZ JASON (PCP) Primary Care Physician Add. Discharge Instructions: All discharge instructions reviewed with patient and/or family. Voiced understanding. Begin oral steroids in a.m. and take as directed. Use your pro-air inhaler only at intervals of every 4 hours or longer. Scripts Prednisone (Prednisone) 20 Mg Tab 20 MG PO DAILY, #22 TAB Take 3 tabs(60mg)daily,decrease by 1/2 tab(10mg)every other day. Prov: ELIZABET ORANTES MD 08/11/19 ELIZABET ORANTES MD Aug 11, 2019 14:07
[2019-08-11 14:26] LABS: BASOPHILS % (AUTO) 0 % (0-10); EOSINOPHILS % (AUTO) 0 % (0-10); HEMATOCRIT 48 % (35-52); HEMOGLOBIN 15.6 G/DL (11.5-16.0); LYMPHOCYTES % (AUTO) 7 % (12-44); MEAN CORPUSCULAR HEMOGLOBIN 28 PG (25-34); MEAN CORPUSCULAR HGB CONC 33 G/DL (32-36); MEAN CORPUSCULAR VOLUME 85 FL (80-99); MEAN PLATELET VOLUME 10.4 FL (7.4-10.4); NEUTROPHILS % (AUTO) 91 % (42-75); PLATELET COUNT 365 10^3/uL (130-400); RED CELL DISTRIBUTION WIDTH 13.5 % (10.0-14.5); WHITE BLOOD COUNT 13.3 10^3/uL (4.3-11.0)
[2019-08-11 14:27] LABS: CARBON DIOXIDE 23 MMOL/L (21-32); CHLORIDE 104 MMOL/L (98-107); LYMPHOCYTES # (AUTO) 0.9 X 10^3 (1.0-4.0); MONOCYTES # (AUTO) 0.2 X 10^3 (0.0-1.0); MONOCYTES % (AUTO) 2 % (0-12); POTASSIUM 4.2 MMOL/L (3.6-5.0); SODIUM 140 MMOL/L (135-145)
[2019-08-11 14:28] LABS: ALANINE AMINOTRANSFERASE 23 U/L (0-55); ALBUMIN 4.9 GM/DL (3.2-4.5); ALKALINE PHOSPHATASE 83 U/L (40-136); BILIRUBIN,TOTAL 1.1 MG/DL (0.1-1.0); BUN/CREATININE RATIO 13; CREATININE SERUM 0.72 MG/DL (0.60-1.30); GFR ESTIMATED > 60; GLUCOSE 149 MG/DL (70-105); TOTAL PROTEIN 8.6 GM/DL (6.4-8.2)
[2019-08-11] MEDS ORDERED: PRD20T PO (14:34)
[2019-08-11 14:44] LABS: BAND NEUTROPHILS 7 %; LYMPHOCYTES % (MANUAL) 7 %; MONOCYTES % (MANUAL) 1 %; NEUTROPHILS % (MANUAL) 85 %
[2019-08-11 14:45] LABS: RBC MORPH NORMAL
[2019-08-11 14:51] VITALS: BP 122/68
== END 2019-08-11 14:50 | disposition home or self-care (01) ==
LOC: EDUNIT# 13:13 → ER FS 13:15
DX: J44.1 Chronic obstructive pulmonary disease with (acute) exacerbation (principal); J45.909 Unspecified asthma, uncomplicated; E78.00 Pure hypercholesterolemia, unspecified; F17.210 Nicotine dependence, cigarettes, uncomplicated; Z88.0 Allergy status to penicillin; Z88.5 Allergy status to narcotic agent; Z85.41 Personal history of malignant neoplasm of cervix uteri
CPT/HCPCS: 36415; 80053; 80306; 85007; 85027

== ENCOUNTER → 2019-08-15 | Outpatient (CLI) | payer MEDICAID ==
[~2019-08-15] MED LIST changes: +PRD20T PO
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
--- NOTE | 2019-08-15 17:57 | Diagnostic Imaging Report ---
INDICATION: Bilateral shoulder pain. FINDINGS: Two views of each shoulder were obtained which shows no fracture, dislocation or other acute abnormality. There is mild degenerative changes at the AC joints bilaterally. No soft tissue calcifications are seen. IMPRESSION: There are mild degenerative changes of the AC joints with no acute abnormality seen. Dictated by: Dictated on workstation # [id number]
== END ==
LOC: RAD FS 16:30
PROVIDERS: ATTEND Nurse Practitioner Family
DX: S09.90XA Unspecified injury of head, initial encounter (principal); G44.309 Post-traumatic headache, unspecified, not intractable; M19.011 Primary osteoarthritis, right shoulder; M19.012 Primary osteoarthritis, left shoulder; X58.XXXA Exposure to other specified factors, initial encounter
CPT/HCPCS: 70450

== ENCOUNTER → 2020-02-08 | Outpatient (CLI) | payer MEDICAID ==
--- NOTE | 2020-02-08 13:57 | Diagnostic Imaging Report ---
INDICATION: Swelling and pain to the left foot. TIME OF EXAMINATION: 1:47 PM. FINDINGS: The metatarsals appear to be intact. The phalanges are intact. The midfoot and hindfoot are unremarkable. No fractures are seen. IMPRESSION: No acute bony abnormality is detected. Dictated by: Dictated on workstation # [id number]
== END ==
LOC: RAD FS 13:33
PROVIDERS: ATTEND Nurse Practitioner Family
DX: M79.672 Pain in left foot (principal)
CPT/HCPCS: 73630

== ENCOUNTER 2022-03-10 21:07 | Emergency (ER) | payer MEDICAID ==
[~2022-03-10 21:07] MED LIST changes: +DOXY-311 PO; -DOXY100C42 PO
[2022-03-10 21:46] LABS: BASOPHILS # (AUTO) 0.1 10^3/uL (0.0-0.1); BASOPHILS % (AUTO) 1 % (0-10); EOSINOPHILS # (AUTO) 0.3 10^3/uL (0.0-0.3); EOSINOPHILS % (AUTO) 3 % (0-10); HEMATOCRIT 43 % (35-52); HEMOGLOBIN 14.3 g/dL (11.5-16.0); LYMPHOCYTES # (AUTO) 3.1 10^3/uL (1.0-4.0); LYMPHOCYTES % (AUTO) 29 % (12-44); MEAN CORPUSCULAR HEMOGLOBIN 28 pg (25-34); MEAN CORPUSCULAR HGB CONC 34 g/dL (32-36); MEAN CORPUSCULAR VOLUME 84 fL (80-99); MEAN PLATELET VOLUME 10.9 fL (9.0-12.2); MONOCYTES # (AUTO) 0.7 10^3/uL (0.0-1.0); MONOCYTES % (AUTO) 6 % (0-12); NEUTROPHILS # (AUTO) 6.5 10^3/uL (1.8-7.8); NEUTROPHILS % (AUTO) 61 % (42-75); PLATELET COUNT 351 10^3/uL (130-400); WHITE BLOOD COUNT 10.7 10^3/uL (4.3-11.0)
[2022-03-10 21:50] LABS: PROTHROMBIN TIME PATIENT 13.2 SEC (12.2-14.7)
[2022-03-10 21:54] LABS: BILIRUBIN,URINE NEGATIVE (NEGATIVE); CLARITY,URINE CLEAR; COLOR,URINE YELLOW; GLUCOSE, URINE (UA) NEGATIVE (NEGATIVE); KETONES,URINE NEGATIVE (NEGATIVE); LEUKOCYTE ESTERASE ,URINE NEGATIVE (NEGATIVE); NITRITE,URINE NEGATIVE (NEGATIVE); PH,URINE 7.5 (5-9); PROTEIN,URINE NEGATIVE (NEGATIVE)
[2022-03-10 22:00] LABS: BACTERIA,URINE FEW /HPF; RBC,URINE 0-2 /HPF
[2022-03-10 22:01] LABS: POTASSIUM 4.1 MMOL/L (3.6-5.0)
[2022-03-10 22:02] LABS: ALBUMIN 4.4 GM/DL (3.2-4.5); BILIRUBIN,TOTAL 0.5 MG/DL (0.1-1.0); CALCIUM 9.6 MG/DL (8.5-10.1); CREATININE SERUM 0.9 MG/DL (0.60-1.30); MAGNESIUM 2.2 MG/DL (1.6-2.4); TOTAL PROTEIN 7.1 GM/DL (6.4-8.2)
[2022-03-10 22:04] LABS: AMPHETAMINE SCREEN, URINE NEGATIVE (NEGATIVE); BARBITURATE SCREEN URINE NEGATIVE (NEGATIVE); BENZODIAZEPINES SCREEN URINE NEGATIVE (NEGATIVE); CANNABINOID SCREEN, URINE NEGATIVE (NEGATIVE); COCAINE SCREEN URINE NEGATIVE (NEGATIVE); METHADONE STAT NEGATIVE (NEGATIVE); METHAMPHETAMINE SCREEN URINE S NEGATIVE (NEGATIVE); OPIATE SCREEN URINE NEGATIVE (NEGATIVE); OXYCODONE STAT NEGATIVE (NEGATIVE); PROPOXYPHENE STAT NEGATIVE (NEGATIVE); TRICYCLIC ANTIDEPRESSANTS SCRE NEGATIVE (NEGATIVE)
--- NOTE | 2022-03-10 22:04 | Diagnostic Imaging Report ---
EXAMINATION: Chest radiograph, portable AP view. DATE: 03/10/2022 9:48 PM INDICATION: 46-year-old female, dizziness. COMPARISON: July 01, 2017. FINDINGS: Heart size and mediastinal contours are unchanged. There is no identified pneumothorax. There is no large pleural effusion. There is no identified focal airspace consolidation. IMPRESSION: No identified acute cardiopulmonary abnormality. Dictated by: Dictated on workstation # [id number]
--- NOTE | 2022-03-10 22:22 | ED General ---
General Chief Complaint: General Problems/Pain Stated Complaint: LIGHTHEADED\\ Nursing Triage Note: Pt complaining of feeling lightheaded and dizzy for about a week. Pt states she checked her bp tonight and it was higher than her normal. Pt also states she has been having headaches daily for about 2 weeks Source of Information: Patient History of Present Illness Date Seen by Provider: Mar 10, 2022 Time Seen by Provider: 22:22 Initial Comments 46-year-old female presenting with complaints of feeling lightheaded and dizzy this evening. She had taken her blood pressure while she was at [facility] and it was 179 for the top number. She became more anxious and worried that if she went home she was going to have a heart attack or stroke. She has been feeling fluttering in her chest for last few weeks and was not sure if that was due to her Combivent and duo nebs or if it was something going on with her heart. She had recently moved back to [place] and was in the process of changing providers. She was worried that maybe she was having a heart attack or some problem with her heart that was causing her symptoms. Timing/Duration: Intermittent (Last several weeks but worse tonight) Severity: Moderate Associated Systoms: Chest Pain (Fluttering in chest and tightness in chest); No Cough, No Diaphoresis, No Fever/Chills, No Headaches, No Loss of Appetite, No Malaise, No Nausea/Vomiting, No Rash, No Seizure; Shortness of Air; No Syncope, No Weakness Allergies and Home Medications Allergies Coded Allergies: hydrocodone (Verified Allergy, Severe, 03/31/17) amoxicillin (Unverified Adverse Reaction, Mild, hives, 06/18/19) Patient Home Medication List Home Medication List Reviewed: Yes Albuterol Sulfate (Proair Hfa) 1 Puff Puff, 2 PUFF IH Q4H Prescribed by: PATRICIA JIMENEZ on 03/31/171815 Albuterol/Ipratropium (Combivent Respimat Inhal Zullinger) 4 Gm Aero, 2 PUFF IH Q4H Prescribed by: PATRICIA JIMENEZ on 07/01/172347 Montelukast Sodium (Singulair) 10 Mg Tablet, 10 MG PO DAILY Prescribed by: PATRICIA JIMENEZ on 07/01/172347 Naproxen (Naproxen) 500 Mg Tablet, (Reported) Entered as Reported by: LAMAR STEPHENSON on 06/18/19 0844 Prednisone (Prednisone) 20 Mg Tab, 20 MG PO DAILY Prescribed by: ELIZABET ORANTES on 08/11/19 1434 Review of Systems Review of Systems Constitutional: No chills, No fever EENTM: no symptoms reported Respiratory: see HPI Cardiovascular: see HPI, palpitations Gastrointestinal: no symptoms reported Genitourinary: no symptoms reported Musculoskeletal: no symptoms reported Skin: No rash Psychiatric/Neurological: Anxiety Past Gvtllyr-Wyutfl-Ugzmdg Hx Patient Social History Tobacco Use?: Yes Tobacco type used: Cigarettes Use of E-Cig and/or Vaping dev: No Substance use?: No Alcohol Use?: No Pt feels they are or have been: No Seasonal Allergies Seasonal Allergies: Yes Past Medical History Surgeries: No Respiratory: Yes Asthma Cardiac: Yes (VASOVAGAL SYNCOPE) High Cholesterol, Syncope Neurological: No Reproductive Disorders: Yes (CERVICAL DYSPLASIA--NO TREATMENT) Female Reproductive Disorders: Ovarian Cyst, Polycystic Ovarian Dis Genitourinary: No Gastrointestinal: No Musculoskeletal: No Endocrine: No HEENT: No Cancer: No (CERVICAL DYSPLASIA--NO TREATMENT--STATES "I WENT AWAY ON IT'S OWN" ) Cervical Psychosocial: No Integumentary: No Blood Disorders: No Physical Exam Vital Signs Vital Signs - First Documented 03/10/22 21:10 Temp 36.8 Pulse 98 Resp 20 B/P (MAP) 164/94 (117) Pulse Ox 96 O2 Delivery Room Air Capillary Refill : Less Than 3 Seconds Height, Weight, BMI Height: 5'3.00" Weight: 190lbs. oz. 86.881238lk; 35.00 BMI Method:Stated General Appearance: WD/WN, Anxious HEENT: PERRL/EOMI, Pharynx Normal Neck: Full Range of Motion, Normal Inspection, Non Tender, Supple Respiratory: Chest Non Tender, Lungs Clear, Normal Breath Sounds, No Accessory Muscle Use, No Respiratory Distress Cardiovascular: Regular Rate, Rhythm Gastrointestinal: Normal Bowel Sounds, No Pulsatile Mass, Non Tender, Soft Rectal: Deferred Extremity: Normal Capillary Refill, Normal Inspection, No Pedal Edema Neurologic/Psychiatric: Alert, Oriented x3, glue bone drier II-XII Norm as Tested Skin: Normal Color, Warm/Dry Progress/Results/Core Measures Suspected Sepsis SIRS Temperature: Pulse: 98 Respiratory Rate: 20 Laboratory Tests 03/10/22 21:19: White Blood Count 10.7 Blood Pressure 164 /94 Mean: 117 Laboratory Tests 03/10/22 21:19: Creatinine 0.90, INR Comment 1.0, Platelet Count 351, Total Bilirubin 0.5 Results/Orders Lab Results Laboratory Tests Test 03/10/22 21:19 03/10/22 21:49 Range/Units White Blood Count 10.7 4.3-11.0 10^3/uL Red Blood Count 5.08 3.80-5.11 10^6/uL Hemoglobin 14.3 11.5-16.0 g/dL Hematocrit 43 35-52 % Mean Corpuscular Volume 84 80-99 fL Mean Corpuscular Hemoglobin 28 25-34 pg Mean Corpuscular Hemoglobin Concent 34 32-36 g/dL Red Cell Distribution Width 13.0 10.0-14.5 % Platelet Count 351 130-400 10^3/uL Mean Platelet Volume 10.9 9.0-12.2 fL Immature Granulocyte % (Auto) 0 % Neutrophils (%) (Auto) 61 42-75 % Lymphocytes (%) (Auto) 29 12-44 % Monocytes (%) (Auto) 6 0-12 % Eosinophils (%) (Auto) 3 0-10 % Basophils (%) (Auto) 1 0-10 % Neutrophils # (Auto) 6.5 1.8-7.8 10^3/uL Lymphocytes # (Auto) 3.1 1.0-4.0 10^3/uL Monocytes # (Auto) 0.7 0.0-1.0 10^3/uL Eosinophils # (Auto) 0.3 0.0-0.3 10^3/uL Basophils # (Auto) 0.1 0.0-0.1 10^3/uL Immature Granulocyte # (Auto) 0.0 0.0-0.1 10^3/uL Prothrombin Time 13.2 12.2-14.7 SEC INR Comment 1.0 0.8-1.4 Activated Partial Thromboplast Time 26 24-35 SEC Sodium Level 139 135-145 MMOL/L Potassium Level 4.1 3.6-5.0 MMOL/L Chloride Level 102 98-107 MMOL/L Carbon Dioxide Level 26 21-32 MMOL/L Anion Gap 11 5-14 MMOL/L Blood Urea Nitrogen 10 7-18 MG/DL Creatinine 0.90 0.60-1.30 MG/DL Estimat Glomerular Filtration Rate 79 BUN/Creatinine Ratio 11 Glucose Level 136 H 70-105 MG/DL Calcium Level 9.6 8.5-10.1 MG/DL Corrected Calcium 9.3 8.5-10.1 MG/DL Magnesium Level 2.2 1.6-2.4 MG/DL Total Bilirubin 0.5 0.1-1.0 MG/DL Aspartate Amino Transf (AST/SGOT) 25 5-34 U/L Alanine Aminotransferase (ALT/SGPT) 25 0-55 U/L Alkaline Phosphatase 80 40-136 U/L Troponin I < 0.30 <0.30 NG/ML Pro-B-Type Natriuretic Peptide < 5.0 <75.0 PG/ML Total Protein 7.1 6.4-8.2 GM/DL Albumin 4.4 3.2-4.5 GM/DL Lipase 23 8-78 U/L Urine Color YELLOW Urine Clarity CLEAR Urine pH 7.5 5-9 Urine Specific [place] 1.015 L 1.016-1.022 Urine Protein NEGATIVE NEGATIVE Urine Glucose (UA) NEGATIVE NEGATIVE Urine Ketones NEGATIVE NEGATIVE Urine Nitrite NEGATIVE NEGATIVE Urine Bilirubin NEGATIVE NEGATIVE Urine Urobilinogen 0.2 < = 1.0 MG/DL Urine Leukocyte Esterase NEGATIVE NEGATIVE Urine RBC (Auto) NEGATIVE NEGATIVE Urine RBC 0-2 /HPF Urine WBC 2-5 /HPF Urine Squamous Epithelial Cells 5-10 /HPF Urine Crystals NONE /LPF Urine Bacteria FEW H /HPF Urine Casts NONE /LPF Urine Mucus NEGATIVE /LPF Urine Culture Indicated NO Urine Opiates Screen NEGATIVE NEGATIVE Urine Oxycodone Screen NEGATIVE NEGATIVE Urine Methadone Screen NEGATIVE NEGATIVE Urine Propoxyphene Screen NEGATIVE NEGATIVE Urine Barbiturates Screen NEGATIVE NEGATIVE Ur Tricyclic Antidepressants Screen NEGATIVE NEGATIVE Urine Phencyclidine Screen NEGATIVE NEGATIVE Urine Amphetamines Screen NEGATIVE NEGATIVE Urine Methamphetamines Screen NEGATIVE NEGATIVE Urine Benzodiazepines Screen NEGATIVE NEGATIVE Urine Cocaine Screen NEGATIVE NEGATIVE Urine Cannabinoids Screen NEGATIVE NEGATIVE My Orders Orders - TAMIKA TEJEDA MD Cbc With Automated Diff (03/10/22 21:36) Magnesium (03/10/22 21:36) Chest 1 View Ap/Pa Only (03/10/22 21:36) Ekg Tracing (03/10/22 21:36) Comprehensive Metabolic Panel (03/10/22 21:36) Protime With Inr (4/25/22 21:36) Partial Thromboplastin Time (03/10/22 21:36) O2 (03/10/22 21:36) Monitor-Rhythm Ecg Trace Only (03/10/22 21:36) Ed Iv/Invasive Line Start (03/10/22 21:36) Lipase (03/10/22 21:36) Troponin I Fs (03/10/22 21:36) Probnp Fs (03/10/22 21:36) Ua Culture If Indicated (03/10/22 21:36) Drug Screen Stat (Urine) (03/10/22 21:36) Vital Signs/I&O 03/10/22 03/10/22 21:10 22:48 Temp 36.8 36.8 Pulse 98 98 Resp 20 20 B/P (MAP) 164/94 (117) 164/94 Pulse Ox 96 96 O2 Delivery Room Air Room Air Capillary Refill : Less Than 3 Seconds Blood Pressure Mean: 117 Progress Note #1: Progress Note Electrocardiogram labs and chest x-ray ordered to evaluate her palpitations and concern for chest pain. With her having palpitations we will also obtain UA and urine drug screen. Progress Note #2: Progress Note Electrocardiogram was not showing any ischemia or arrhythmia. Labs appear stable without acute significant abnormality. Her cardiac enzymes are negative. Chest x-ray is clear without acute infiltrate or effusion. Patient's blood pressure was improved in the ED. Reassured patient and counseled on follow-up and return precautions. Advised she may need to do a Holter monitor through the clinic to evaluate the fluttering or palpitations sensation in her chest. Patient was comfortable with going home and following up in the clinic for continued concerns. Counseled on return precautions and encouraged to check with [facility] could do some of the services so she did not have to drive all the way up to [place]. ECG Initial ECG Impression Date: Mar 10, 2022 Initial ECG Impression Time: 21:14 Initial ECG Rate: 95 Initial ECG Rhythm: Normal Sinus Initial ECG Comparisson: No Previous ECG Available Comment Sinus rhythm with a heart rate [address] interval [address] elevation. No prior tracing available for comparison. QT interval 365 ms with a QTc interval 459 ms. Diagnostic Imaging Diagonstic Imaging: Xray Plain Films/CT/US/NM/MRI: chest Comments [facility] [place], [place] NAME: EMILIA KERR [facility] REC#: [id number] PT STATUS: DEP ER : 1975 PHYSICIAN: TAMIKA TEJEDA MD ADMIT DATE: 03/10/22/ER FS Signed Date of Exam:03/10/22 CHEST 1 VIEW AP/PA ONLY EXAMINATION: Chest radiograph, portable AP view. DATE: 03/10/2022 9:48 PM INDICATION: 46-year-old female, dizziness. COMPARISON: July 01, 2017. FINDINGS: Heart size and mediastinal contours are unchanged. There is no identified pneumothorax. There is no large pleural effusion. There is no identified focal airspace consolidation. IMPRESSION: No identified acute cardiopulmonary abnormality. Dictated by: Dictated on workstation # [id number] Dict: 03/10/222200 Trans: 03/10/222306 [facility] [id number] Interpreted by: RUCHI MAY MD Electronically signed by: RUCHI MAY MD 03/10/222306 Reviewed: Reviewed by Me Departure Impression Primary Impression: Heart palpitations Additional Impression: Elevated blood pressure reading Disposition: HOME, SELF-CARE Condition: Stable Departure-Patient Inst. Decision time for Depature: 22:45 Referrals: LUIZ JASON (PCP/Family) Primary Care Physician Patient Instructions: Palpitations ED, High Blood Pressure ED Add. Discharge Instructions: Check with the clinic about possible Holter monitor to look into the fluttering or palpitations sensation in your chest. Follow-up with the clinic for continued concerns. Make sure to continue to eat a healthy balanced diet and drink plenty of water and fluids. All discharge instructions reviewed with patient and/or family. Voiced understanding. TAMIKA TEJEDA MD Mar 10, 2022 22:22
[2022-03-10 22:48] VITALS: BP 164/94
== END 2022-03-10 22:52 | disposition home or self-care (01) ==
LOC: EDUNIT# 21:07 → ER FS 21:08
DX: R00.2 Palpitations (principal); R03.0 Elevated blood-pressure reading, without diagnosis of hypertension; F17.210 Nicotine dependence, cigarettes, uncomplicated
CPT/HCPCS: 36415; 71045; 80053; 80306; 81000; 83690; 83735; 83880; 84484; 85025; 85610; 85730; 93005